=== PATIENT | female | born 1955 | race Caucasian/White ===

== ENCOUNTER 2022-08-18 00:31 | Inpatient (IN) | payer MEDICARE, SELFPAY ==
[2022-08-18] VITALS (9 sets, daily range): BP systolic 147–176; BP diastolic 59–87; PULSE 72–105; RESP 16–20; TEMP 36.2–37; O2SAT 92–95; BMI 27.4; BMI 33.0
--- NOTE | 2022-08-18 | ECG_ITS ---
Test Reason : CHEST PAIN Blood Pressure : / mmHG Vent. Rate : 091 BPM Atrial Rate : 091 BPM P-R Int : 150 ms QRS Dur : 122 ms QT Int : 436 ms P-R-T Axes : 076 115 -29 degrees QTc Int : 536 ms Sinus rhythm with occasional Premature ventricular complexes Right axis deviation Incomplete right bundle branch block Possible Right ventricular hypertrophy ST & T wave abnormality, consider inferior ischemia ST depression, consider subendocardial injury Anterolateral leads Abnormal ECG When compared with ECG of 06-NOV-2013 23:57, Significant changes have occurred Referred By: Meggan Sol Electronically Signed By:KADI LEVIN MD
--- NOTE | 2022-08-18 | ECG_ITS ---
Test Reason : REPEAT Blood Pressure : / mmHG Vent. Rate : 076 BPM Atrial Rate : 076 BPM P-R Int : 160 ms QRS Dur : 126 ms QT Int : 446 ms P-R-T Axes : 073 108 265 degrees QTc Int : 501 ms Normal sinus rhythm Possible Left atrial enlargement Rightward axis Non-specific intra-ventricular conduction block T wave abnormality, consider inferolateral ischemia Abnormal ECG When compared with ECG of 18-AUG-2022 04:11, No significant changes seen Referred By: Mickie Moura Electronically Signed By:KADI LEVIN MD
--- NOTE | ~2022-08-18 | XR_ITS ---
EXAMINATION: XR CHEST CLINICAL INFORMATION: Chest pain COMPARISON: 01/13/2016 TECHNIQUE: Frontal view of the chest was obtained. FINDINGS: Diffuse prominence of interstitium. Bronchial wall thickening redemonstrated. Bandlike opacity in the right midlung adjacent to the minor fissure represents subsegmental atelectasis. No pneumothorax. Normal heart size and pulmonary vascularity. Aorta is atherosclerotic. XR/XR chest 1V IMPRESSION: Diffuse bronchial wall thickening suggestive of bronchitis. No focal consolidation.
--- NOTE | 2022-08-18 02:23 | ED.CHESTPAIN ---
HPI - Chest Pain General Chief Complaint: Chest Pain Stated Complaint: pain in chest and left arm Time Seen by Provider: 08/18/22 02:11 Source: patient Limitations: language barrier History of Present Illness HPI narrative: This is a 67-year-old female with a history of an unspecified cardiac arrhythmia, also history of hypertension, unclear if she is on medication for blood pressure, hypercholesterolemia, diabetes, not a smoker, who complains of chest pain this been worsening over last few days. The pain has been coming and going but was more intense this evening. The patient also notes that she has a tingling sensation in her left forearm and hand. She denies shortness of breath, nausea, recurrent sweats but notes she did have some sweats yesterday. Patient did have a stress test done at [facility] several years ago but could not complete the exercise portion. She did call her primary care physician and has been referred to a edi specialist. Related Data Allergies Allergy/AdvReac Type Severity Reaction Status Date / Time No Known Allergies Allergy Unverified 07/14/20 17:47 [No Known Allergies*] Review of Systems Review of Systems: Yes all other systems are reviewed and are negative Constitutional: Constitutional: Reports as per HPI and Denies fever(s) Eyes: Eyes: Reports as per HPI and Reports no additional eye complaints ENT: Reports system reviewed and no additional complaints, except as documented, Reports as per HPI, Denies nasal congestion, Denies nasal discharge and Denies sore throat Cardiovascular: Cardiovascular: Reports as per HPI, Reports chest pain and Denies dyspnea Respiratory: Respiratory: Reports as per HPI, Denies cough and Denies dyspnea Gastrointestinal: Gastrointestinal: Reports as per HPI, Denies abdominal pain, Denies diarrhea and Denies vomiting Neurologic: Reports as per HPI and Denies focal weakness Psychiatric: Psychiatric: Reports no additional psychiatric complaints and Reports as per HPI Endocrine: Endocrine: Reports no additional endocrine complaints and Reports as per HPI Hematologic/Lymphatic: Hematologic/Lymphatic: Reports no additional hematologic/lymphatic complaints, Reports as per HPI and Reports other (No peripheral edema) [facility] Social History Social History Patient Tobacco Use Status: Never used Tobacco Use of substances other than those prescribed or required for medical reasons: No Advance Directives: No Advance Directives Information Provided: No Physical Exam Vital Signs: Vital Signs: Last Vital Signs Temp 98.3 F 08/18/22 02:11 Pulse 95 08/18/22 02:11 Resp 20 08/18/22 02:11 BP 176/87 H 08/18/22 02:11 Pulse Ox 94 08/18/22 02:11 O2 Del Method 08/18/22 02:11 BMI result Body Mass Index 27.4 PERRLA Conj [place] Mucous membranes moist Throat clear Neck supple Lungs CTA Heart RRR no murmurs rubs or gallops Abd soft, non tender, non distended, moderately obese Extremities no pitting edema Neuro alert and oriented x 3, non focal MDM - Chest Pain MDM Narrative Medical decision making narrative: Patient with significant risk factors for coronary artery disease, has had stuttering chest pain, gradually worsening. EKG does show ST depression consistent with possible ischemia. Patient is being started on aspirin, nitroglycerin sublingual. Patient is somewhat hypertensive. Patient is being signed out to Dr. Goldman at 02:45, will make final disposition. Troponin and other labs, chest x-ray pending Lab Data Result diagrams: 08/18/22 02:35 08/18/22 02:35 Labs: Lab Results 08/18/22 Range/Units 02:35 WBC 9.5 (4.8-10.8) X10*3/uL RBC 4.11 L (4.20-5.50) X10*6/uL Hgb 11.8 L (12.0-16.0) g/dl Hct 35.4 L (37.0-47.0) % MCV 86.1 (80.0-98.0) fL MCH 28.7 (27.0-33.0) pg MCHC 33.3 (31.0-35.0) g/dl RDW 13.0 (11.0-16.0) % Plt Count 286 (160-400) X10*3/uL MPV 9.9 (9.4-12.3) fL Immature Gran % (Auto) 0.2 (0.0-0.4) % Neut % (Auto) 65.8 (45-73) % Lymph % (Auto) 26.4 (20-40) % [place] % (Auto) 5.8 (2-11) % Eos % (Auto) 1.4 (0-4) % Baso % (Auto) 0.4 (0-2) % Lymph # (Auto) 2.5 (1.2-4.9) X10*3/uL [place] # (Auto) 0.6 (0.1-1.2) X10*3/uL Eos # (Auto) 0.1 (0.0-0.4) X10*3/uL Baso # (Auto) 0.0 (0.0-0.2) X10*3/uL Abs Immat Gran (auto) 0.02 (0.00-0.03) X10*3/uL Absolute Neuts (auto) 6.3 (2.0-8.3) x10*3/uL Absolute Nucleated RBC 0.000 (0.0-0.012) X10*3/uL Nucleated RBC % (auto) 0.0 (0.0-0.2) /100WBC ECG Data ECG #1: ECG interpretation date: 08/18/22 ECG interpretation time: 01:58 Prior ECG tracings: not available for review Interpretation: Sinus rhythm with occasional PVCs. Right axis deviation. Q-waves in leads V1 and V2. ST depression noted in leads V4 through V6 as well as in leads 2 3 AVF. Discharge Plan Discharge Clinical Impression: Chest pain
[2022-08-18 02:40] LABS: MANUAL DIFF FLAG NO
[2022-08-18] MEDS: Aspirin 81 MG TAB.CHEW 324 MG PO (02:40)
[2022-08-18 02:42] LABS: Basophils Percent Auto 0.4 % (0-2); Eosinophils Absolute Auto 0.1 X10*3/uL (0.0-0.4); Eosinophils Percent Auto 1.4 % (0-4); Hematocrit 35.4 % (37.0-47.0); Hemoglobin 11.8 g/dl (12.0-16.0); Imm Gran Abs Auto 0.02 X10*3/uL (0.00-0.03); Imm Gran Pct Auto 0.2 % (0.0-0.4); Lymphocytes Absolute Auto 2.5 X10*3/uL (1.2-4.9); Lymphocytes Percent Auto 26.4 % (20-40); Mean Corpuscular HGB Conc 33.3 g/dl (31.0-35.0); Mean Corpuscular Hemoglobin 28.7 pg (27.0-33.0); Mean Corpuscular Volume 86.1 fL (80.0-98.0); Mean Platelet Volume 9.9 fL (9.4-12.3); Monocytes Absolute Auto 0.6 X10*3/uL (0.1-1.2); Monocytes Percent Auto 5.8 % (2-11); Neutrophils Absolute Auto 6.3 x10*3/uL (2.0-8.3); Neutrophils Percent Auto 65.8 % (45-73); Platelet Count 286 X10*3/uL (160-400); Red Blood Count 4.11 X10*6/uL (4.20-5.50); White Blood Count 9.5 X10*3/uL (4.8-10.8)
[2022-08-18 02:47] LABS: INTERNATIONAL NORM RATIO 0.9 (0.9-1.1); Prothrombin Time 10.3 SEC (10.0-13.1)
[2022-08-18 02:50] LABS: Partial Thromboplastin Time 35.4 SEC (26.0-36.4)
[2022-08-18 03:04] LABS: Alanine Aminotransferase 12 U/L (0-31); Albumin Level 4.2 g/dL (3.5-5.0); Alkaline Phosphatase 77 U/L (39-117); Anion Gap 18 (12-20); Aspartate Amino Transferase 14 U/L (5-31); Bilirubin Total 0.3 mg/dL (0.0-1.0); Blood Urea Nitrogen 22 mg/dL (9-16); Calcium 9.2 mg/dL (8.4-10.2); Carbon Dioxide 26 mmol/L (22-29); Chloride 101 mmol/L (96-108); Creatinine Clr Calc Pharmacy 76.8; Estimated Glomerular Filt Rate > 60; Glucose Random 171 mg/dL (60-115); Sodium 141 mmol/L (135-145); Total Protein 6.8 g/dL (6.5-8.0)
[2022-08-18 03:08] LABS: Troponin-I High Sensitivity 22.7 ng/L (<3.5-17.0)
[2022-08-18 04:02] LABS: COVID-19 Test Negative (Negative)
--- NOTE | 2022-08-18 04:08 | ECG_ITS ---
Test Reason : REPEAT Blood Pressure : / mmHG Vent. Rate : 087 BPM Atrial Rate : 087 BPM P-R Int : 158 ms QRS Dur : 128 ms QT Int : 434 ms P-R-T Axes : 058 106 -65 degrees QTc Int : 522 ms Normal sinus rhythm Incomplete right bundle branch block ST depression in Anterolateral leads Possible Right ventricular hypertrophy Cannot rule out Septal infarct (cited on or before 18-AUG-2022) T wave abnormality, consider inferior ischemia Abnormal ECG When compared with ECG of 18-AUG-2022 02:17, Serial changes of Septal infarct Present Referred By: Meggan Sol Electronically Signed By:KADI LEVIN MD
[2022-08-18 04:41] LABS: Hematocrit 34.1 % (37.0-47.0); Hemoglobin 11.3 g/dl (12.0-16.0); Mean Corpuscular HGB Conc 33.1 g/dl (31.0-35.0); Mean Corpuscular Hemoglobin 28.6 pg (27.0-33.0); Mean Corpuscular Volume 86.3 fL (80.0-98.0); Mean Platelet Volume 10.1 fL (9.4-12.3); Platelet Count 278 X10*3/uL (160-400); Red Blood Count 3.95 X10*6/uL (4.20-5.50); White Blood Count 8.7 X10*3/uL (4.8-10.8)
[2022-08-18 04:47] LABS: Prothrombin Time 10.9 SEC (10.0-13.1)
[2022-08-18 04:49] LABS: PTT Heparin Drip 35.6 SEC (53-77.9)
[2022-08-18] MEDS: Heparin Sodium,Porcine 5,000 UNIT/ML VIAL 4000 UNIT IVPUSH (05:20)
[2022-08-18] MEDS: Heparin Sodium,Porcine/1/2NS 25,000 UNIT/250 ML IV.SOLN 9.84 UNIT IVCONT (05:37)
--- NOTE | 2022-08-18 05:40 | PC.NURSE ---
pt started on heparin drip @0540 - indonesian bilingual sales representative used at bedside to explain medication to patient - all patient questions answered at this time. pt resting comfortably, on monitoring and evaluation advisor. next ptt to be drawn @1130
--- NOTE | 2022-08-18 10:43 | PC.NURSE ---
This RN, hospitalist and wind plant manager at bedside. Pt states pain is intermittent and currently having pain, described as choking in nature . Aware of plan/admission. Heparin at 12units/kg/hr as ordered. Placed on 2lpm via nc, RA sat 91-92%, NSR on tele rate 105. Pt reports needing 02 at home but unable to maintain d/t finance. Denies SOB or dizziness. Skin pwd.
--- OUTSIDE RECORDS SUMMARY | 2022-08-18 11:09 | XMS_ITS | Continuity of Care Document ---
:1955 Author Organization [facility] Address [address] [place] [phone]- Care Team Providers Name Role Phone Not on Staff, PCP Primary Care Physician Unavailable Encounter [facility] Date(s): 04/05/20 - 05/05/20 [facility] [address] [place] [id number]- [facility] Attending Physician: Admtr, Ar8 Admitting Physician: Admtr, Ar8 Referring Physician: Admtr, Ar8 Allergies, Adverse Reactions, Alerts Substance Reaction Severity Status NKA Active Immunizations Given and Recorded Vaccine Date Status Refusal Reason pneumococcal 23-valent vaccine 12/12/19 Given Not Given Vaccine Date Status Refusal Reason influenza virus vaccine, inactivated 12/12/19 Not Given Patient Refuses Medications albuterol-ipratropium 3 mg-0.5 mg/3 ml inhalation solution 3 mL, Neb, Every 6 hours, PRN Wheezing/Shortness of Breath, # 180 mL, 0 Refills, Maintenance, 12/14/19 14:17:00 EST, Inhalation Solution, [facility], 3 mL Neb Every 6 hours,PRN:Wheezing/Shortness of Breath, 163, cm, 12/14/19 1... Start Date: 12/14/19 Status: OrderedAldactone 25 mg oral tablet 25 mg, 1, tablet, By Mouth, Daily, # 30 tablet, Refills 0, Tot. Refills 0, Maintenance, 01/01/20 8:31:00 EST, Route to Pharmacy Electronically, [facility], 163, cm, 01/01/20 8:01:00 EST, Height, 77.8, kg, 12/11/19 18:02:00 EST... Start Date: 01/01/20 Status: OrderedAmaryl 2 mg oral tablet 1 tablet = 2 mg, By Mouth, 2 times a day, 0 Refills, Maintenance, 12/08/16 17:52:23 EST Start Date: 12/08/16 Status: OrderedAspirin Low Dose 81 mg oral delayed release tablet 1 tablet = 81 mg, By Mouth, Daily, # 30 tablet, 0 Refills, Maintenance, 12/08/16 17:50:29 EST, EC Tablet Start Date: 12/08/16 Status: Orderedatorvastatin 80 mg oral tablet 1 tablet = 80 mg, By Mouth, Daily, # 30 tablet, 0 Refills, Maintenance, 09/29/19 9:27:05 EST, Tablet Start Date: 09/29/19 Status: Orderedcarvedilol 25 mg oral tablet 25 mg, 1, tablet, By Mouth, 2 times a day, # 180 tablet, Refills 1, Tot. Refills 1, Maintenance, 12/02/19 9:08:00 EST, Route to Pharmacy Electronically, [facility], this is an increased dose, 163, cm, 12/02/19 9:03:00 EST, Hei... Start Date: 12/02/19 Stop Date: 05/30/20 Status: OrderedEntresto 97 mg-103 mg oral tablet 1 tablet, By Mouth, 2 times a day, for 90 days, # 180 tablet, 1 Refills, Hard Stop 09/05/20 11:21:00EST, 03/09/20 11:21:00 EDT, Tablet, [facility], 163, cm, 01/01/20 8:01:00 EST, Height, 77.8, kg, 12/11/19 18:02:00 EST, Dry Weight Start Date: 03/09/20 Stop Date: 09/05/20 Status: OrderedEntresto 97 mg-103 mg oral tablet 1 tablet, By Mouth, 2 times a day, # 180 tablet, 3 Refills, Maintenance, 09/05/20 11:21:00 EST, Tablet, [facility], 1 tablet By Mouth 2 times a day, 163, cm, 01/01/20 8:01:00 EST, Height, 77.8, kg, 12/11/19 18:02:00 EST, Dry Weight Start Date: 09/05/20 Status: OrderedFlovent HFA 220 mcg/inh inhalation aerosol 1 puffs, Inhalation, 2 times a day, # 12 Gm, 0 Refills, Maintenance, Aerosol Start Date: 11/07/13 Status: Orderedfurosemide 20 mg oral tablet 20 mg, 1, tablet, By Mouth, Daily, # 30 tablet, Refills 0, Maintenance, 11/13/19 8:55:00 EST Start Date: 11/13/19 Status: Orderedmetformin 1000 mg oral tablet 1 tablet = 1,000 mg, By Mouth, 2 times a day, 0 Refills, Maintenance, 11/12/14 11:04:11 EST Start Date: 11/12/14 Status: OrderedProventil HFA 90 mcg/inh inhalation aerosol with adapter 1 puffs, Inhalation, 4 times a day, PRN for wheezing, # 1 each, 3 Refills, Maintenance, Inhaler Start Date: 11/14/13 Status: OrderedSerevent Diskus 50 mcg inhalation powder 1 each = 50 mcg, Inhalation, Every 12 hours, # 60 each, 0 Refills, Maintenance, 09/29/19 9:26:59 EST, Powder Start Date: 09/29/19 Status: OrderedSpiriva HandiHaler 18 mcg inhalation capsule 1 capsule = 18 mcg, Inhalation, Daily, ukrainian labels, # 90 capsule, 1 Refills, Maintenance, 12/14/2013:13:00 EST, [facility], 163, cm, 12/14/19 13:58:00 EST, Height, 77.8, kg,12/11/19 18:02:00 EST, Dry Weight Start Date: 12/14/19 Status: OrderedVitamin D3 2000 intl units oral capsule TAKE ONE CAPSULE DAILY Start Date: 09/29/19 Status: Ordered Problem List Condition Effective Dates Status Health Status Informant Non-ischemic cardiomyopathy(Confirmed) Active Type II diabetes mellitus(Confirmed) Active Social History Social History 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
--- OUTSIDE RECORDS SUMMARY | 2022-08-18 11:09 | XMS_ITS | Continuity of Care Document ---
:1955 Author Organization [facility] Address [address] [place] [phone]- Care Team Providers Name Role Phone Dinora Villagomez DO Primary Care Physician Encounter [facility] Date(s): 03/21/22 - 04/20/22 [facility] [address] [place] [id number]- Allergies, Adverse Reactions, Alerts No Known Allergies Immunizations Given and Recorded Vaccine Date Status Refusal Reason pneumococcal 23-valent vaccine 12/12/19 Given Not Given Vaccine Date Status Refusal Reason influenza virus vaccine, inactivated 12/12/19 Not Given Patient Refuses Medications albuterol-ipratropium 3 mg-0.5 mg/3 ml inhalation solution 3 mL, Neb, Every 6 hours, PRN Wheezing/Shortness of Breath, # 180 mL, 0 Refills, Maintenance, 12/14/19 14:17:00 EST, Inhalation Solution, [facility], 3 mL Neb Every 6 hours,PRN:Wheezing/Shortness of Breath, 163, cm, 12/14/19 1... Start Date: 12/14/19 Status: OrderedAldactone 25 mg oral tablet See Instructions, 0.5 tablet By Mouth Daily, # 45 tablet, Refills 1, Tot. Refills 1, Maintenance, 11/22/20 9:29:00 EST, Instructions Replace Required Details, Route to Pharmacy Electronically, [facility], 163, cm, 08/19/20 14:30:00... Start Date: 11/22/20 Status: OrderedAmaryl 2 mg oral tablet 1 [...] times a day, # 180 tablet, Refills 2, Tot. Refills 2, Maintenance, 03/21/22 15:03:00 EDT, Route to Pharmacy Electronically, [facility], 163, cm, 09/26/21 10:57:00 EST, Height, 81.3, kg, 06/07/21 23:46... Start Date: 03/21/22 Stop Date: 12/16/22 Status: Ordereddiclofenac 1% topical gel 1 application, Topically, 4 times a day, # 100 Gm, 0 Refills, Maintenance, 06/09/21 15:16:00 EDT, Gel, [facility], Partial fill upon patient request if the prescription is for a schedule II opioid drug., 163, cm, 08/19/20 14:30:00 E... Start Date: 06/09/21 Status: OrderedEntresto 97 mg-103 mg oral tablet 1 tablet, By Mouth, 2 times a day, # 180 tablet, 3 Refills, Maintenance, 03/21/22 15:02:00 EDT, Tablet, [facility], 1 tablet By Mouth 2 times a day,x90 days, 163, cm, 09/26/21 10:57:00 EST, Height, 81.3, kg, 06/07/21 23:46:00 EDT,... Start Date: 03/21/22 Stop Date: 03/16/23 Status: Orderedfamotidine 20 mg oral tablet Refills 0, Maintenance, 09/26/21 10:58:00 EST, Partial fill upon patient request if the prescriptionis for a schedule II opioid drug. Start Date: 09/26/21 Status: OrderedFlovent HFA 220 mcg/inh inhalation aerosol 1 puffs, Inhalation, 2 times a day, # 12 Gm, 0 Refills, Maintenance, Aerosol Start Date: 11/07/13 Status: Orderedfurosemide 20 mg oral tablet 20 mg, 1, tablet, By Mouth, Daily, # 90 tablet, Refills 2, Tot. Refills 2, Maintenance, 03/21/22 15:04:00 EDT, Route to Pharmacy Electronically, [facility], 163, cm, 09/26/21 10:57:00 EST, Height, 81.3, kg, 06/07/21 23:46:00 EDT,... Start Date: 03/21/22 Stop Date: 12/16/22 Status: Orderedmetformin 1000 mg oral tablet 1 tablet = 1,000 mg, By Mouth, 2 times a day, 0 Refills, Maintenance, 11/12/14 11:04:11 EST Start Date: 11/12/14 Status: OrderedOxygen Daily at bedtime, 0.5 liters, 0 Refills, Maintenance, 08/19/20 14:33:00 EDT Start Date: 08/19/20 Status: OrderedProventil HFA 90 mcg/inh inhalation aerosol [...] 1 capsule = 18 mcg, Inhalation, Daily, thai labels, # 90 capsule, 1 Refills, Maintenance, 12/14/2013:13:00 EST, [facility], 163, cm, 12/14/19 13:58:00 EST, Height, 77.8, kg,12/11/19 18:02:00 EST, Dry Weight Start Date: 12/14/19 Status: OrderedTrulicity Pen 1.5 mg/0.5 mL subcutaneous solution Subcutaneous Infusion, 0 Refills, Maintenance, 08/19/20 14:33:00 EDT Start Date: 08/19/20 Status: OrderedTylenol 8 Hour 650 mg oral tablet, extended release 2 tablet = 1,300 mg, By Mouth, Every 8 hours, PRN as needed for pain, # 50 tablet, 0 Refills, Maintenance, 06/09/21 15:16:00 EDT, ER Tablet, [facility], Partial fill upon patient request if the prescription is for a schedule II opio... 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
--- OUTSIDE RECORDS SUMMARY | 2022-08-18 11:09 | XMS_ITS | Continuity of Care Document ---
:1955 Author Organization [facility] Address [address] [place] [phone]- Care Team Providers Name Role Phone Dinora Villagomez DO Primary Care Physician Encounter [facility] Date(s): 12/16/20 - 01/15/21 [facility] [address] [place] [id number] Attending Physician: Henry Heath Admitting Physician: [id number] Referring Physician: Admtr, Ar8 Allergies, Adverse Reactions, [...] Inhalation Solution, [facility] - , 3 mL Neb Every 6 hours,PRN:Wheezing/Shortness of [...] 12/02/19 9:08:00 EST, Route to Pharmacy Electronically, [facility], this is an increased dose, 163, cm, 12/02/19 9:03:00 EST, Hei... Start Date: 12/02/19 Stop Date: 05/30/20 Status: OrderedEntresto 97 mg-103 mg oral tablet 1 tablet, By Mouth, 2 times a day, # 180 tablet, 1 Refills, Maintenance, 11/22/20 9:29:00 EST, Tablet, [facility], 1 tablet By Mouth 2 times a day, 163, cm, 08/19/20 14:30:00 EDT, Height, 77.8, kg, 12/11/19 18:02:00 EST, Dry Weight Start Date: 11/22/20 Status: OrderedFlovent HFA 220 mcg/inh inhalation aerosol [...] Refills, Maintenance, 11/12/14 11:04:11 EST Start Date: 1/16/15 Status: OrderedOxygen Daily at bedtime, 0.5 liters, [...] 1 capsule = 18 mcg, Inhalation, Daily, malay labels, # 90 capsule, 1 Refills, Maintenance, 12/14/2013:13:00 EST, [facility], 163, cm, 12/14/19 13:58:00 EST, Height, 77.8, kg,12/11/19 18:02:00 EST, Dry Weight Start Date: 12/14/19 Status: OrderedTrulicity Pen 1.5 mg/0.5 mL subcutaneous solution Subcutaneous Infusion, 0 Refills, Maintenance, 08/19/20 14:33:00 EDT Start Date: 08/19/20 Status: OrderedVitamin D3 2000 intl units oral [...]
--- OUTSIDE RECORDS SUMMARY | 2022-08-18 11:09 | XMS_ITS | Continuity of Care Document ---
:1955 Author Organization [facility] Address [address] [place] [phone]- Care Team Providers Name Role Phone Not on Staff, PCP Primary Care Physician Unavailable Encounter [facility] Date(s): 03/11/20 - 03/18/20 [facility] [address] [place] [phone]- [facility] Attending Physician: Jaqueline Fletcher NP Referring Physician: Enzo Nance DO Allergies, Adverse Reactions, Alerts Substance Reaction Severity [...] Refills, Maintenance, 12/14/19 14:17:00 EST, Inhalation Solution, [facility], 3 mL Neb Every 6 hours,PRN:Wheezing/Shortness of Breath, 163, cm, 12/14/19 1... Start Date: 12/14/19 Status: OrderedAldactone 25 mg oral tablet 25 mg, 1, tablet, By Mouth, Daily, # 30 tablet, Refills 0, Tot. Refills 0, Maintenance, 01/01/20 8:31:00 EST, Route to Pharmacy Electronically, [facility], 163, cm, 01/01/20 [...] 12/02/19 9:08:00 EST, Route to Pharmacy Electronically, [facility], this is an [...] 1 capsule = 18 mcg, Inhalation, Daily, iranian labels, # 90 capsule, 1 Refills, Maintenance, 12/14/2013:13:00 EST, [facility], 163, cm, 12/14/19 [...]
--- OUTSIDE RECORDS SUMMARY | 2022-08-18 11:09 | XMS_ITS | Continuity of Care Document ---
:1955 Author Organization [facility] Address [address] [place] [phone]- Care Team Providers Name Role Phone StaciecarlaDinora Herrera DO Primary Care Physician Encounter [facility] Date(s): 12/10/19 - 12/14/[address] [address]- [facility] Encounter Diagnosis Congestive heart failure (Final) - 12/10/19 Discharge Disposition: A-D/C Home Attending Physician: Yari Arriaza MD Admitting Physician: Phuong ALFORD, Froilan Mercedes Referring Physician: Not on Staff, Referring MD Allergies, Adverse Reactions, Alerts Substance Reaction Severity [...] Refills, Maintenance, 12/14/19 14:17:00 EST, Inhalation Solution, [facility], 3 mL Neb Every 6 hours,PRN:Wheezing/Shortness of Breath, 163, cm, 12/14/19 1... Start Date: 12/14/19 Status: OrderedAmaryl 2 mg oral tablet 1 [...] 12/02/19 9:08:00 EST, Route to Pharmacy Electronically, [facility], this is an increased dose, 163, cm, 12/02/19 9:03:00 EST, Hei... Start Date: 12/02/19 Stop Date: 05/30/20 Status: Ordereddoxycycline hyclate 100 mg oral tablet = 100 mg, By Mouth, Every 12 hours, Kiswahili labels, # 3 tablet, 0 Refills, Acute 12/15/19 22:00:00 EST, 12/14/19 21:00:00 EST, Tablet, [facility], 163, cm, 12/14/19 13:58:00 EST, Height, 77.8, kg, 12/11/19 18:02:00 EST, Dry Weight Start Date: 12/14/19 Stop Date: 12/15/19 Status: OrderedEntresto 97 mg-103 mg oral tablet 1 tablet, By Mouth, 2 times a day, # 180 tablet, 4 Refills, Maintenance, 11/13/19 9:38:00 EST, Tablet, [facility], 1 tablet By Mouth 2 times a day,x90 days, 163, cm, 11/13/19 8:54:00 EST, Height, 77.8, kg, 09/28/19 7:52:00 EST... Start Date: 11/13/19 Stop Date: 02/05/21 Status: OrderedFlovent HFA 220 mcg/inh inhalation aerosol [...] 11/12/14 11:04:11 EST Start Date: 11/12/14 Status: OrderedpredniSONE 10 mg oral tablet See Instructions, 30 mg on 12/15 for 3 days f/b 20mg for 3 days f/b 10 mg for 3 days and then stop. Labels in nepalese, # 18 tablet, 0 Refills, Acute 12/23/19 22:00:00 EST, 12/14/19 14:14:00 EST, Tablet, [facility], 163, cm, 11/28... Start Date: 12/14/19 Stop Date: 12/23/19 Status: OrderedProventil HFA 90 mcg/inh inhalation aerosol [...] 1 capsule = 18 mcg, Inhalation, Daily, nepalese labels, # 90 capsule, 1 Refills, Maintenance, 12/14/2013:13:00 EST, [facility], 163, cm, 12/14/19 13:58:00 EST, Height, 77.8, kg,12/11/19 18:02:00 EST, Dry Weight Start Date: 12/14/19 Status: OrderedVitamin D3 2000 intl units oral capsule TAKE ONE CAPSULE DAILY Start Date: 09/29/19 Status: Ordered Problem List Condition Effective Dates Status Health Status Informant Non-ischemic cardiomyopathy(Confirmed) Active Type II diabetes mellitus(Confirmed) Active Results Radiology Reports Exam Date Time Procedure Performing Provider Status 12/10/19 6:42 PM Chest Portable Arnold Doyle; Carlos (Verified) Notes:(Chest Portable) Reason For Exam: Shortness of BreathRESULT: Chest Portable Chest Portable Reason: Shortness of Breath; Clinical Question(s): CHF; Hx of Present Illness: SOB; Other Objective Findings: Pt nepalese speaking, came in viw ems on CPAP. states that she has been SOB for 2 days. lungssound diniminshed in bilateral bases. COMPARISON: 09/26/2019, 12/05/2014 FINDINGS: LINES AND TUBES: None. LUNGS AND PLEURA: There is prominence of the central pulmonary vessels and mid to lower lung interstitial markings. Nofocal airspace consolidation. No pneumothorax. No effusion. HEART, MEDIASTINUM AND ANN: Heart is normal in size. The ann are prominent, and similar to 2019 exam, but increased in size from 2014. BONES AND SOFT TISSUES: No acute abnormality. IMPRESSION: Findings are most suggestive of pulmonary venous congestion and interstitial edema, mild. Prominence of the ann similar to August 2019, but new compared with 2014. Findings could represent enlarged vessels versus hilar adenopathy. This could be further evaluated with routine chest CT. A Earp message has been communicated via the vogogo system on 12/10/2019 7:06 PM, Message ID [id number]. WSN: [id number] Dictated By: Any Boyle MD Dictated Date/Time: 12/10/19 7:06 pm Reviewed By: Any Boyle MD Signed By: Any Boyle MD Signed Date/Time: 12/10/19 7:06 pm Transcribed By: KALI Transcribed Date/Time: 12/10/19 7:03 pm Vital Signs Most recent to oldest 1 2 3 [Reference Range]: Height 163 cm 163 cm 163 cm (12/14/19 1:58 PM) (12/14/19 8:13 AM) (12/14/19 1:5 0 AM) Weight 79.9 kg 79.7 kg 78.7 kg (12/14/19 6:35 AM) (12/13/19 7:00 AM) (12/12/19 7:1 6 AM) Oxygen Saturation [94-100 %] 96 % 98 % 95 % (12/14/19 1:58 PM) (12/14/19 1:50 AM) (12/13/19 8:2 5 PM) Pulse Rate [55-90 bpm] 77 bpm 73 bpm 68 bpm (12/14/19 1:58 PM) (12/14/19 8:13 AM) (12/14/19 1:5 0 AM) Body Mass Index [18.5-24.99] 29.96 *H* (12/11/19 5:46 PM) Blood Pressure [90-138/55-84 mm 115/63 mm Hg 115/78 mm Hg 100/63 mm Hg Hg] (12/14/19 1:58 PM) (12/14/19 8:13 AM) (12/14/19 1:5 0 AM) Respiratory Rate [16-30 br/min] 16 br/min 16 br/min 16 br/min (12/14/19 1:58 PM) (12/14/19 8:13 AM) (12/14/19 1:5 0 AM) Temperature [96.8-100.4 DegF] 98.4 DegF 98.0 DegF 96 .9 DegF (12/14/19 1:58 PM) (12/14/19 8:13 AM) (12/14/19 1:5 0 AM) Liters per Minute 1.5 L/min 3 L/min 3 L/min (12/14/19 1:58 PM) (12/14/19 1:50 AM) (12/13/19 8:2 5 PM) Mode of Delivery (Oxygen) Nasal cannula Nasal cannula Nasal cannula (12/14/19 1:58 PM) (12/14/19 1:50 AM) (12/13/19 8:2 5 PM) Blood pressure sites Arm, left Arm, right Arm, left (12/14/19 1:58 PM) (12/14/19 8:13 AM) (12/14/19 1:5 0 AM) Temperature Route Oral Oral Temporal (12/14/19 1:58 PM) (12/14/19 8:13 AM) (12/14/19 1:5 0 AM) Dry Weight 77.8 kg (12/11/19 5:46 PM) Weight Obtained Via Bed scale Bed scale Bed scale (12/14/19 6:35 AM) (12/13/19 7:00 AM) (12/12/19 7:1 6 AM) Sensory deficits None (12/11/19 5:46 PM) Mobility assistance Independent (12/11/19 5:46 PM) Social History Social History 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
--- OUTSIDE RECORDS SUMMARY | 2022-08-18 11:10 | XMS_ITS | Continuity of Care Document ---
:1955 Author Organization [facility] Address [address] [place] [address]- Care Team Providers Name Role Phone Not on Staff, PCP Primary Care Physician Unavailable Encounter [facility] Date(s): 04/06/20 - 05/11/20 [facility] [address] [place] [address]- [facility] Attending Physician: Enzo Nance DO Admitting Physician: Enzo Nance DO Allergies, Adverse Reactions, [...] Refills, Maintenance, 12/14/19 14:17:00 EST, Inhalation Solution, [facility], 3 mL Neb Every 6 hours,PRN:Wheezing/Shortness of Breath, 163, cm, 12/14/19 1... Start Date: 12/14/19 Status: OrderedAldactone 25 mg oral tablet 25 mg, 1, tablet, By Mouth, Daily, # 30 tablet, Refills 0, Tot. Refills 0, Maintenance, 01/01/20 8:31:00 EST, Route to Pharmacy Electronically, [facility], 163, cm, 01/01/20 [...] 12/02/19 9:08:00 EST, Route to Pharmacy Electronically, [facility], this is an [...] 1 capsule = 18 mcg, Inhalation, Daily, kosovan labels, # 90 capsule, 1 Refills, Maintenance, 12/14/2013:13:00 EST, [facility], 163, cm, 12/14/19 [...]
--- OUTSIDE RECORDS SUMMARY | 2022-08-18 11:10 | XMS_ITS | Continuity of Care Document ---
:1955 Author Organization [facility] Address [address] [place] [phone]- Care Team Providers Name Role Phone Enzo Nance DO Primary Care Physician Encounter [facility] Date(s): 01/01/20 - 01/11/20 [facility] [address] [place] [address]- [facility] Attending Physician: AdmHenry benítez Admitting Physician: Admtr, Ar8 Referring Physician: Admtr, [...] Refills, Maintenance, 12/14/19 14:17:00 EST, Inhalation Solution, [facility], 3 mL Neb Every 6 hours,PRN:Wheezing/Shortness of Breath, 163, cm, 12/14/19 1... Start Date: 12/14/19 Status: OrderedAldactone 25 mg oral tablet 25 mg, 1, tablet, By Mouth, Daily, # 30 tablet, Refills 0, Tot. Refills 0, Maintenance, 01/01/20 8:31:00 EST, Route to Pharmacy Electronically, [facility], 163, cm, [...] 12/02/19 9:08:00 EST, Route to Pharmacy Electronically, [facility], this is an increased dose, 163, cm, 12/02/19 9:03:00 EST, Hei... Start Date: 12/02/19 Stop Date: 05/30/20 Status: OrderedEntresto 97 mg-103 mg oral tablet 1 tablet, By Mouth, 2 times a day, # 180 tablet, 4 Refills, Maintenance, 11/13/19 9:38:00 EST, Tablet, [facility], 1 tablet By Mouth [...] 1 capsule = 18 mcg, Inhalation, Daily, persian labels, # 90 capsule, 1 Refills, Maintenance, 12/14/2013:13:00 EST, [facility], 163, cm, [...]
--- OUTSIDE RECORDS SUMMARY | 2022-08-18 11:10 | XMS_ITS | Continuity of Care Document ---
:1955 Author Organization [facility] Address [address] [place] [phone]- Care Team Providers Name Role Phone Dinora Villagomez DO Primary Care Physician Encounter [facility] Date(s): 12/02/19 - 12/12/19 [facility] [address] [place] [address]- [facility] Attending Physician: Henry Heath Admitting Physician: AdmtrHenry Referring Physician: AdmtrHenry Allergies, Adverse Reactions, Alerts Substance Reaction Severity Status NKA Active Immunizations Given and Recorded Vaccine Date Status Refusal Reason pneumococcal 23-valent vaccine 12/12/19 Given Not Given Vaccine Date Status Refusal Reason influenza virus vaccine, inactivated 12/12/19 Not Given Patient Refuses Medications Amaryl 2 mg oral tablet 1 tablet = [...] 12/02/19 9:08:00 EST, Route to Pharmacy Electronically, [facility] - [facility], this is an increased dose, 163, cm, 12/02/19 9:03:00 EST, Hei... Start Date: 12/02/19 Stop Date: 05/30/20 Status: OrderedEntresto 97 mg-103 mg oral tablet 1 tablet, By Mouth, 2 times a day, # 180 tablet, 4 Refills, Maintenance, 11/13/19 9:38:00 EST, Tablet, [facility], 1 tablet By [...] Date: 09/29/19 Status: OrderedSpiriva HandiHaler 18 mcg Inhalation Capsule 1 capsule = 18 mcg, Inhalation, Daily, # 30 each, 1 Refills, Maintenance, Inhalation Capsule Start Date: 11/14/13 Status: OrderedVitamin D3 2000 intl units oral [...]
--- OUTSIDE RECORDS SUMMARY | 2022-08-18 11:10 | XMS_ITS | Continuity of Care Document ---
:1955 Author Organization [facility] Address [address] [place] [address]- Care Team Providers Name Role Phone Dinora Villagomez DO Primary Care Physician [place] [facility] [place]s): 11/13/19 - 11/23/19 [facility] [address] [place] [address]- [facility] Attending Physician: Henry Heath Admitting Physician: AdmtrHenry Referring Physician: Admtr Ar8 Allergies, Adverse Reactions, Alerts Substance Reaction Severity Status NKA Active Medications Amaryl 2 mg oral tablet 1 [...] 09/29/19 Status: Orderedcarvedilol 25 mg oral tablet 12.5 mg, 0.5, tablet, By Mouth, 2 times a day, # 30 tablet, Refills 2, Tot. Refills 2, Maintenance, 09/30/19 15:11:29 EST, Route to Pharmacy Electronically, [id number], [facility], 163, cm, 09/30/19 11:23:13 EST... 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
--- OUTSIDE RECORDS SUMMARY | 2022-08-18 11:10 | XMS_ITS | Continuity of Care Document ---
:1955 Author Organization [facility] Address [address] [place] [address]- Care Team Providers Name Role Phone Dinora Villagomez DO Primary Care Physician [id number] Date(s): 06/07/21 - 06/07/[address] [address]- Discharge Disposition: A-D/C Walkout Attending Physician: Not on Staff, Attending MD Admitting Physician: Not on Staff, Admitting MD Referring Physician: Not on Staff, Referring MD [...] Refills, Maintenance, 12/14/19 14:17:00 EST, Inhalation Solution, [facility], 3 mL Neb Every [...] 12/02/19 9:08:00 EST, Route to Pharmacy Electronically, [facility], this is an increased [...] 1 capsule = 18 mcg, Inhalation, Daily, malawian labels, # 90 capsule, 1 Refills, Maintenance, 12/14/2013:13:00 EST, [facility], 163, cm, 12/14/19 13:58:00 [...] Exam Date Time Procedure Performing Provider Status 06/07/21 3:27 PM XR Hip w/Pelvis 2-3 View Right Marilou Pedraza ; Auth (Verified) Notes:(XR Hip w/Pelvis 2-3 View Right) Reason For Exam: PainRESULT: XR Hip w/Pelvis 2-3 View Right XR Hip w/Pelvis 2-3 View Right Hx of Present Illness: Right hip and leg pain x 4 days; Reason: Pain; Clinical Question(s): Other: COMPARISON: 12/23/2008. FINDINGS: The patient is status post right hip arthroplasty. Hardware appears intact without evidence of loosening. Hardware is anatomic alignment. No acute fracture. Degenerative changes noted in the lower lumbar spine. The SI joints are normal. Calcified phleboliths in the soft tissue pelvis. Mild stool retention. IMPRESSION: Status post right hip arthroplasty. No evidence of hardware failure. No acute abnormality. WSN: [id number] Ordering Physician: Thea Beckford Dictated By: Aashish Castorena MD Dictated Date/Time: 06/07/21 3:41 pm Reviewed By: Aashish Castorena MD Signed By: Aashish Castorena MD Signed Date/Time: 06/07/21 3:41 pm Transcribed By: KALI Transcribed Date/Time: 06/07/21 3:38 pm Vital Signs Most recent to oldest 1 2 3 [Reference Range]: Weight 81.3 kg 81.3 kg 81.3 kg (06/07/21 11:46 PM) (06/07/21 11:46 PM) (06/07/21 2 :48 PM) Oxygen Saturation [94-100 %] 98 % 98 % 95 % (06/07/21 11:46 PM) (06/07/21 8:31 PM) (06/07/21 11 :30 AM) Pulse Rate [55-90 bpm] 78 bpm 76 bpm 79 bpm (06/07/21 11:46 PM) (06/07/21 8:31 PM) (06/07/21 11 :30 AM) Blood Pressure [90-138/55-84 150/75 mm Hg 159/83 mm Hg 133 /78 mm Hg mm Hg] *H* *H* (06/07/21 11:30 A M) (06/07/21 11:46 PM) (06/07/21 8:31 PM) Respiratory Rate [16-30 16 br/min 20 br/min 16 br/mi n br/min] (06/07/21 11:46 PM) (06/07/21 8:31 PM) (06/07/21 11 :30 AM) Temperature [96.8-100.4 97.7 DegF 98.2 DegF 98.7 Deg F DegF] (06/07/21 11:46 PM) (06/07/21 8:31 PM) (06/07/21 11 :30 AM) Mode of Delivery (Oxygen) Room air Room air Room a ir (06/07/21 11:46 PM) (06/07/21 8:31 PM) (06/07/21 11 :30 AM) Blood pressure sites Arm, right Arm, left Arm, right (06/07/21 11:46 PM) (06/07/21 8:31 PM) (06/07/21 11 :30 AM) Temperature Route Oral Oral Oral (06/07/21 11:46 PM) (06/07/21 11:46 PM) (06/07/21 8 :31 PM) Dry Weight 81.3 kg 81.3 kg 81.3 kg (06/07/21 11:46 PM) (06/07/21 11:46 PM) (06/07/21 2 :48 PM) Weight Obtained Via Standing scale (06/07/21 11:30 AM) Dry Weight Obtained Via Standing scale (06/07/21 11:30 AM) Social History Social History 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
--- OUTSIDE RECORDS SUMMARY | 2022-08-18 11:10 | XMS_ITS | Continuity of Care Document ---
:1955 Author Organization [facility] Address [address] [place] [phone]- Care Team Providers Name Role Phone Dinora Villagomez DO Primary Care Physician Encounter [facility] Date(s): 09/26/21 - 10/26/21 [facility] [address] [place] [phone]- Attending Physician: Henry Heath Admitting Physician: Henry Heath Referring Physician: Admtr, Patricio8 Allergies, Adverse Reactions, Alerts Substance Reaction Severity [...] Refills, Maintenance, 12/14/19 14:17:00 EST, Inhalation Solution, [facility], 3 mL Neb [...] 12/02/19 9:08:00 EST, Route to Pharmacy Electronically, [facility], this is an increased dose, 163, cm, 12/02/19 9:03:00 EST, Hei... Start Date: 12/02/19 Stop Date: 05/30/20 Status: Ordereddiclofenac 1% topical gel 1 application, [...] tablet, By Mouth, 2 times a day, waiting for mailorder, # 180 tablet, 4 Refills, Maintenance, 09/26/21 11:49:00 EST, Tablet, [facility], 1 tablet By Mouth 2 times a day,x90 days,Instr:waiting for mailorder, 163, cm, 09/26/21 10:57... Start Date: 09/26/21 Stop Date: 12/20/22 Status: Orderedfamotidine 20 mg oral tablet Refills [...] 1 capsule = 18 mcg, Inhalation, Daily, guamanian labels, # 90 capsule, 1 Refills, Maintenance, 12/14/2013:13:00 EST, [facility], 163, cm, 12/14/19 [...]
--- OUTSIDE RECORDS SUMMARY | 2022-08-18 11:10 | XMS_ITS | Continuity of Care Document ---
:1955 Author Organization [facility] Address [address] [place] [address]- Care Team Providers Name Role Phone Not on Staff, PCP Primary Care Physician Unavailable Encounter [facility] Date(s): 03/24/20 - 05/05/20 [facility] [address] [place] [phone]- [facility] Attending Physician: Enzo Nance DO Referring Physician: Not on Staff, Referring MD [...] Refills, Maintenance, 12/14/19 14:17:00 EST, Inhalation Solution, [facility], 3 mL Neb Every 6 hours,PRN:Wheezing/Shortness of Breath, 163, cm, 12/14/19 1... Start Date: 12/14/19 Status: OrderedAldactone 25 mg oral tablet 25 mg, 1, tablet, By Mouth, Daily, # 30 tablet, Refills 0, Tot. Refills 0, Maintenance, 01/01/20 8:31:00 EST, Route to Pharmacy Electronically, [facility], 163, cm, 01/01/20 8:01:00 [...] 12/02/19 9:08:00 EST, Route to Pharmacy Electronically, [facility], this is [...] 1 capsule = 18 mcg, Inhalation, Daily, amharic labels, # 90 capsule, 1 Refills, Maintenance, 12/14/2013:13:00 EST, [facility], 163, cm, [...]
--- OUTSIDE RECORDS SUMMARY | 2022-08-18 11:10 | XMS_ITS | Continuity of Care Document ---
:1955 Author Organization [facility] Address [address] [place] [address]- Care Team Providers Name Role Phone Dinora Villagomez DO Primary Care Physician Encounter [facility] Date(s): 09/20/21 - 10/20/21 [facility] [address] [place] [address]- [place] Allergies, Adverse Reactions, Alerts Substance Reaction Severity [...] 1 capsule = 18 mcg, Inhalation, Daily, montenegrin labels, # 90 capsule, 1 Refills, Maintenance, [...]
--- OUTSIDE RECORDS SUMMARY | 2022-08-18 11:10 | XMS_ITS | Continuity of Care Document ---
:1955 Author Organization [facility] Address [address] [place] [address]- Care Team Providers Name Role Phone StaciecarlaDinora Herrera DO Primary Care Physician Encounter [facility] Date(s): 11/22/20 - 12/22/20 [facility] [address] [place] [address] Allergies, Adverse Reactions, Alerts Substance Reaction Severity [...] Refills, Maintenance, 12/14/19 14:17:00 EST, Inhalation Solution, [facility] - , 3 mL Neb [...] 12/02/19 9:08:00 EST, Route to Pharmacy Electronically, [facility], this is an [...] 1 capsule = 18 mcg, Inhalation, Daily, bruneian labels, # 90 capsule, 1 Refills, Maintenance, 12/14/2013:13:00 EST, [facility], 163, cm, 12/14/19 [...]
--- OUTSIDE RECORDS SUMMARY | 2022-08-18 11:10 | XMS_ITS | Continuity of Care Document ---
:1955 Author Organization [facility] Address [address] [place] [address]- Care Team Providers Name Role Phone Dinora Villagomez DO Primary Care Physician Encounter [facility] [place] Date(s): 10/02/19 - 12/10/19 [facility] [address] [place] [phone]- [facility] Attending Physician: Enzo Nance DO Admitting Physician: Enzo Nance DO Referring Physician: Dinora Villagomez DO Allergies, Adverse Reactions, Alerts Substance Reaction [...] 12/02/19 9:08:00 EST, Route to Pharmacy Electronically, [facility], this is an increased dose, 163, cm, 12/02/19 9:03:00 EST, Hei... Start Date: 12/02/19 Stop Date: 05/30/20 Status: OrderedEntresto 97 mg-103 mg oral tablet 1 tablet, By Mouth, 2 times a day, # 180 tablet, 4 Refills, Maintenance, 11/13/19 9:38:00 EST, Tablet, [facility], 1 tablet By Mouth [...]
--- OUTSIDE RECORDS SUMMARY | 2022-08-18 11:10 | XMS_ITS | Continuity of Care Document ---
:1955 Author Organization [facility] Address [address] [place] [address]- Care Team Providers Name Role Phone Dinora Villagomez DO Primary Care [id number] Date[facility] 06/08/21 - 06/09/[address] [address]- Encounter Diagnosis Muscle strain of thigh (Final) - 06/09/21 Discharge Disposition: A-D/C Home Attending Physician: Mickie Villagran MD Admitting Physician: Mickie Villagran MD Referring Physician: Not on Staff, Referring [...] Refills, Maintenance, 12/14/19 14:17:00 EST, Inhalation Solution, [facility], 3 mL [...] 12/02/19 9:08:00 EST, Route to Pharmacy Electronically, [facility] - [facility], this is [...] 90 capsule, 1 Refills, Maintenance, 12/14/2013:13:00 EST, [facility], 163, cm, [...] cardiomyopathy(Confirmed) Active Type II diabetes mellitus(Confirmed) Active Vital Signs Most recent to oldest 1 2 3 [Reference Range]: Oxygen Saturation [94-100 %] 98 % 98 % 95 % (06/09/21 2:41 PM) (06/09/21 12:55 PM) (06/09/21 8: 05 AM) Pulse Rate [55-90 bpm] 80 bpm 82 bpm 84 bpm (06/09/21 2:41 PM) (06/09/21 12:55 PM) (06/09/21 8: 05 AM) Blood Pressure [90-138/55-84 140/69 mm Hg 142/70 mm Hg 141 /72 mm Hg mm Hg] *H* *H* *H* (06/09/21 2:41 PM) (06/09/21 12:55 PM) (06/09/21 8: 05 AM) Respiratory Rate [16-30 17 br/min 16 br/min 16 br/mi n br/min] (06/09/21 2:41 PM) (06/09/21 12:55 PM) (06/09/21 8: 05 AM) Temperature [96.8-100.4 DegF] 98.2 DegF 98.2 DegF 98 .1 DegF (06/09/21 2:41 PM) (06/09/21 12:55 PM) (06/09/21 8: 05 AM) Mode of Delivery (Oxygen) Room air Room air Room a ir (06/09/21 2:41 PM) (06/09/21 12:55 PM) (06/09/21 8: 05 AM) Blood pressure sites Arm, right Arm, right Arm, right (06/09/21 2:41 PM) (06/09/21 12:55 PM) (06/09/21 8: 05 AM) Temperature Route Oral Oral Oral (06/09/21 2:41 PM) (06/09/21 12:55 PM) (06/09/21 8: 05 AM) Social History Social History 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
--- NOTE | 2022-08-18 11:46 | PM.IMHP ---
History of Present Illness Date of Service: 08/18/22 <JANELLE Peraza - Last Filed: 08/18/22 16:36> Attending physician on admission: Daniel Fontenot <JANELLE Peraza - Last Filed: 08/18/22 16:36> Chief Complaint: chest pain <JANELLE Peraza - Last Filed: 08/18/22 16:36> 67-year-old female with history of insulin-dependent type 2 diabetes, hypertension, CHF unspecified type, COPD, former smoker, hypercholesterolemia, history unspecified arrhythmia presented to the ED early this morning for evaluation of retrosternal chest pain that has been ongoing intermittently for several days that had been worsening. She describes a burning sensation in the chest without any pressure with associated tingling into the left forearm and hand. There is no radiation of the pain. Occurs at rest and with exertion. She denies any other associated symptoms including diaphoresis, nausea, vomiting, shortness of breath, lightheadedness, palpitations. She states she did have a similar episode well walking for prolonged period several months ago described as tightness across the chest which resolved with rest. She did not seek medical attention for follow-up on this chest pain. On arrival, patient is hypertensive at 175/84, heart rate 92, no hypoxia. Chest x-ray shows diffuse bronchial wall thickening suggestive of bronchitis without any focal consolidation. Initial EKG shows sinus rhythm, rate 91, with ST/T-wave abnormality with depressions noted in the the 2-4 and leads II, III, AVF. Repeat EKG shows some improvement with depressions persist. Initial troponin 22.7, repeat troponin 28.0. Glucose 171. Renal function and electrolytes stable. Hematology study stable. Patient given aspirin and nitro in the ED and is resting comfortably currently. She has no complaints. ED discussed case with cardiology who is recommending admission and patient started on heparin drip. RN assisted with Sami interpretation. <JANELLE Peraza - Last Filed: 08/18/22 16:36> Review of Systems Review of Systems: General: No fevers, malaise, unintentional weight loss HEENT: No blurred vision or diplopia Cardiovascular: + chest pain. No palpitations, diaphoresis, or leg edema Respiratory: No shortness of breath, wheezing, cough GI: No abdominal pain, nausea, vomiting, diarrhea, constipation, melena, hematochezia : No dysuria, hematuria, increased urinary frequency Neuro: No headaches, weakness, paresthesias Skin: No rashes or lesions <JANELLE Peraza - Last Filed: 08/18/22 16:36> [facility] Medical History: Medical History (Updated 08/18/22 @ 11:55 by JANELLE Peraza) CHF (congestive heart failure) COPD (chronic obstructive pulmonary disease) HTN (hypertension) Hyperlipidemia Type 2 diabetes <JANELLE Peraza - Last Filed: 08/18/22 16:36> Family History: Family History (Updated 08/18/22 @ 11:56 by JANELLE Peraza) Mother Stroke Maternal Grandmother CAD (coronary artery disease) <JANELLE Peraza - Last Filed: 08/18/22 16:36> Social History: Social History (Updated 08/18/22 @ 11:56 by JANELLE Peraza) Patient Tobacco Use Status: Former Tobacco user Use of substances other than those prescribed or required for medical reasons: No Advance Directives: No Advance Directives Information Provided: No <JANELLE Peraza - Last Filed: 08/18/22 16:36> Meds Allergies/Adverse reactions: Allergies Allergy/AdvReac Type Severity Reaction Status Date / Time No Known Allergies Allergy Unverified 07/14/20 17:47 [No Known Allergies*] <JANELLE Peraza - Last Filed: 08/18/22 16:36> Active Medications: Current Medications Acetaminophen (Acetaminophen 325 Mg Tablet) 650 mg PO Q6H PRN PRN Reason: Pain, Mild (Pain Scale 1-3) Dextrose (Dextrose 50 % 25 Gm/50 Ml Syringe) 25 gm IVPUSH Q15M PRN; Protocol PRN Reason: per Hypoglycemia Standing Ord. Docusate Sodium (Docusate Sodium 100 Mg Capsule) 100 mg PO DAILY PRN PRN Reason: Constipation Glucose (Glucose Gel 15 Gm Gel..Gram.) 15 gm PO Q15M PRN; Protocol PRN Reason: per Hypoglycemia Standing Ord. Heparin Sodium (Porcine) (Heparin Sodium,Porcine 5,000 Unit/Ml Vial) 3,300 unit IVPUSH PROTOCOL BOLUS PRN; Protocol PRN Reason: 40 unit/kg - Heparin Protocol Heparin Sodium (Porcine) (Heparin Sodium,Porcine 5,000 Unit/Ml Vial) 6,600 unit IVPUSH PROTOCOL BOLUS PRN; Protocol PRN Reason: 80 unit/kg - Heparin Protocol Heparin Sodium/Sodium Chloride (Heparin Sodium,Porcine/1/2ns) 25,000 unit in 250 mls @ 0 mls/hr IVCONT .Q0M [facility]; Protocol Last Admin: 08/18/22 05:37 Dose: 12 units/kg/hr, 9.84 mls/hr Insulin Human Lispro (Insulin Lispro 100 Unit/Ml 3 Ml Vial) 0 unit SUBCUT QIDACHS [facility]; Protocol Nitroglycerin (Nitroglycerin 0.4 Mg Tab.Subl) 0.4 mg SUBLINGUAL Q5MX3 PRN PRN Reason: Chest Pain Ondansetron HCl (Ondansetron Hcl 4 Mg/2 Ml Vial) 4 mg IVPUSH Q8H PRN PRN Reason: Nausea and Vomiting Pharmacy Consult (Consult Rx Perform Med Rec) 1 each MISCELLANE ONCE PRN PRN Reason: Consult order Sodium Chloride (0.9 % Sodium Chloride Flush 3 Ml Syringe) 3 ml IVFLUSH [facility] <JANELLE Peraza - Last Filed: 08/18/22 16:36> Home medications: Home Medications Medication Instructions Recorded Confirmed Last Taken Type albuterol sulfate 90 mcg/actuation 2 puff inhalation Q4H PRN 08/18/22 08/18/22 Unknown History aerosol inhaler (ProAir HFA) Shortness Of Breath ascorbic acid (vitamin C) 1,000 mg 1,000 mg PO BID 08/18/22 08/18/22 08/17/22 History tablet (Vitamin C) aspirin 81 mg tablet,delayed 81 mg PO DAILY 08/18/22 08/18/22 08/17/22 History release atorvastatin 80 mg tablet 1 tab BEDTIME 08/18/22 08/18/22 08/17/22 History carvedilol 25 mg tablet 1 tab PO BID 08/18/22 08/18/22 08/17/22 History cholecalciferol (vitamin D3) 50 1 cap DAILY 08/18/22 08/18/22 08/17/22 History mcg (2,000 unit) capsule cyanocobalamin (vitamin B-12) 1,000 mcg PO DAILY 08/18/22 08/18/22 Unknown History 1,000 mcg tablet furosemide 20 mg tablet 1 tab PO DAILY 08/18/22 08/18/22 08/17/22 History insulin glargine 100 unit/mL (3 30 unit subcut BEDTIME 08/18/22 08/18/22 08/17/22 History mL) subcutaneous pen (Lantus Solostar U-100 Insulin) ipratropium 0.5 mg-albuterol 3 mg 3 ml inhalation Q6H PRN Shortness 08/18/22 08/18/22 Unknown History (2.5 mg base)/3 mL nebulization Of Breath soln magnesium oxide 400 mg PO BID 08/18/22 08/18/22 08/17/22 History metformin 1,000 mg tablet 1 tab PO BIDWM 08/18/22 08/18/22 08/17/22 History salmeterol 50 mcg/dose blister 1 inh inhalation BID 08/18/22 08/18/22 08/17/22 History powder for inhalation (Serevent Diskus) vitamin B complex 1 tab PO DAILY 08/18/22 08/18/22 08/17/22 History vitamin K2 100 mcg capsule 100 mcg PO DAILY 08/18/22 08/18/22 08/17/22 History <JANELLE Peraza - Last Filed: 08/18/22 16:36> Physical Exam Vital Signs and Narrative: Vital Signs: Last Vital Signs Temp 98.4 F 08/18/22 06:02 Pulse 105 H 08/18/22 10:43 Resp 20 08/18/22 10:43 BP 172/77 H 08/18/22 10:43 Pulse Ox 92 08/18/22 10:43 O2 Del Method 08/18/22 10:43 BMI result Body Mass Index 33.0 <JANELLE Peraza - Last Filed: 08/18/22 16:36> Constitutional - Awake and Alert, No apparent distress Eyes - PERRLA, EOMI Cardiovascular - S1S2, RRR, No edema Respiratory - Normal lung expansion, Normal respiratory effort, No respiratory distress, CTA bilaterally Gastrointestinal - NT / ND; +BS; No rebound or guarding Extremities - no calf tenderness bilaterally, no swelling Skin - Warm/Dry Neurological - Alert & oriented x3, CN II-XII in tact, no sensory or motor deficit Psychological - Appropriate affect <JANELLE Peraza - Last Filed: 08/18/22 16:36> Results Labs CBC and Chem 7: : 08/18/22 04:35 08/18/22 02:35 <JANELLE Peraza - Last Filed: 08/18/22 16:36> Labs: Laboratory Results - last 24 hr 08/18/22 08/18/22 08/18/22 02:35 02:35 02:35 MCV 86.1 MCH 28.7 MCHC 33.3 RDW 13.0 Plt Count 286 MPV 9.9 Immature Gran % (Auto) 0.2 Neut % (Auto) 65.8 Lymph % (Auto) 26.4 Amelia % (Auto) 5.8 Eos % (Auto) 1.4 Baso % (Auto) 0.4 Lymph # (Auto) 2.5 Amelia # (Auto) 0.6 Eos # (Auto) 0.1 Baso # (Auto) 0.0 Abs Immat Gran (auto) 0.02 Absolute Neuts (auto) 6.3 Absolute Nucleated RBC 0.000 Nucleated RBC % (auto) 0.0 PT INR APTT aPTT Heparin Protocol Anion Gap 18 Estim Creat Clear Calc 76.8 Estimated GFR > 60 Random Glucose 171 H Calcium 9.2 Total Bilirubin 0.3 AST 14 ALT 12 Alkaline Phosphatase 77 Troponin I High Sens 22.7 H Total Protein 6.8 Albumin 4.2 COVID-19 ([facility]) COVID-19 Clin Com 08/18/22 08/18/22 08/18/22 02:35 03:43 03:43 MCV MCH MCHC RDW Plt Count MPV Immature Gran % (Auto) Neut % (Auto) Lymph % (Auto) Amelia % (Auto) Eos % (Auto) Baso % (Auto) Lymph # (Auto) Amelia # (Auto) Eos # (Auto) Baso # (Auto) Abs Immat Gran (auto) Absolute Neuts (auto) Absolute Nucleated RBC Nucleated RBC % (auto) PT 10.3 INR 0.9 APTT 35.4 aPTT Heparin Protocol Anion Gap Estim Creat Clear Calc Estimated GFR Random Glucose Calcium Total Bilirubin AST ALT Alkaline Phosphatase Troponin I High Sens 28.0 H Total Protein Albumin COVID-19 ([facility]) Negative COVID-19 Clin Com See Note 08/18/22 08/18/22 04:35 04:35 MCV 86.3 MCH 28.6 MCHC 33.1 RDW 13.0 Plt Count 278 MPV 10.1 Immature Gran % (Auto) Neut % (Auto) Lymph % (Auto) Amelia % (Auto) Eos % (Auto) Baso % (Auto) Lymph # (Auto) Amelia # (Auto) Eos # (Auto) Baso # (Auto) Abs Immat Gran (auto) Absolute Neuts (auto) Absolute Nucleated RBC 0.000 Nucleated RBC % (auto) 0.0 PT 10.9 INR 1.0 APTT aPTT Heparin Protocol 35.6 L Anion Gap Estim Creat Clear Calc Estimated GFR Random Glucose Calcium Total Bilirubin AST ALT Alkaline Phosphatase Troponin I High Sens Total Protein Albumin COVID-19 ([facility]) COVID-19 Clin Com <JANELLE Peraza - Last Filed: 08/18/22 16:36> Imaging Radiologist's Impressions: Impressions Chest X-Ray 08/18/22 02:29 IMPRESSION: Diffuse bronchial wall thickening suggestive of bronchitis. No focal consolidation. <JANELLE Peraza - Last Filed: 08/18/22 16:36> Assessment and Plan (1) ACS (acute coronary syndrome): Status: Acute <JANELLE Peraza - Last Filed: 08/18/22 16:36> 67-year-old female with history of insulin-dependent type 2 diabetes, hypertension, CHF unspecified type, COPD, former smoker, hypercholesterolemia, history unspecified arrhythmia admitted for unstable angina. #Unstable angina- patient denies current chest pain -patient with somewhat atypical retrosternal burning chest pain worsening intermittently over the last 5 days -Given ASA and nitro in ED with full resolution of symptoms. -continue ASA daily and nitro p.r.n. -EKG with depressions be 2-4 and II, III, AVF. Improved on repeat EKG -troponins flat at 22.0 and 28 -cardiology consulted -continue heparin drip per Cardiology -echocardiogram ordered -admit to telemetry #CHF- unspecified type- euvolemic -Prescribed entresto but has not been taking due to cost -Continue furosemide -Echo pending #HTN-BP elevated -Resume home carvedilol and lasix -Monitor BP #HLD -LDL pending -COntinue statin # insulin-dependent type 2 diabetes -POC glucose -diabetic diet -dose adjusted Lantus -Humalog on sliding scale -hold metformin # COPD without acute exacerbation -continue home maintenance meds -albuterol p.r.n. # history unspecified arrhythmia -EKG showing sinus rhythm -admit to telemetry DVT prophylaxis-on heparin per protocol Full code Patient requires inpatient stay of at least 2 midnights due to unstable angina on heparin drip requiring further workup including echocardiogram and possible stress test with Aks per consultation Addendum to history and physical by mid-level provider, JANELLE Moura I interviewed and examined the patient. I discussed their presentation and management with the mid-level provider. I reviewed the history and physical and agree with the documentation, with the following additions and corrections: 67yo F with DM2, HTN, CHF, COPD, HLD Presenting with stutering burning chest pain with LUE tingling for the past few days, both rest and exertional. EKG with anterolateral ST dperessions. Hs-Tn-I 22.7->28 but this was after 1 hr, not 3 hr. Concern for NSTEMI/UA. Plan admit to IMC, heparinize, ASA/statin/carvedilol, TTE, statin, Cardiology consult. <JANELLE Peraza - Last Filed: 08/18/22 16:36> 67-year-old female with history of insulin-dependent type 2 diabetes, hypertension, CHF unspecified type, COPD, former smoker, hypercholesterolemia, history unspecified arrhythmia admitted for unstable angina. #Unstable angina- patient denies current chest pain -patient with somewhat atypical retrosternal burning chest pain worsening intermittently over the last 5 days -Given ASA and nitro in ED with full resolution of symptoms. -continue ASA daily and nitro p.r.n. -EKG with depressions be 2-4 and II, III, AVF. Improved on repeat EKG -troponins flat at 22.0 and 28 -cardiology consulted -continue heparin drip per Cardiology -echocardiogram ordered -admit to telemetry #CHF- unspecified type- euvolemic -Prescribed entresto but has not been taking due to cost -Resume entresto -Continue furosemide -Echo pending #HTN-BP elevated -Resume home carvedilol and entresto -Monitor BP #HLD -LDL pending -COntinue statin # insulin-dependent type 2 diabetes -POC glucose -diabetic diet -dose adjusted Lantus -Humalog on sliding scale -hold metformin and Trulicity # COPD without acute exacerbation -continue home maintenance meds -albuterol p.r.n. # history unspecified arrhythmia -EKG showing sinus rhythm -admit to telemetry DVT prophylaxis-on heparin per protocol Full code Patient requires inpatient stay of at least 2 midnights due to unstable angina on heparin drip requiring further workup including echocardiogram and possible stress test with Aks per consultation Addendum to history and physical by mid-level provider, JANELLE Moura I interviewed and examined the patient. I discussed their presentation and management with the mid-level provider. I reviewed the history and physical and agree with the documentation, with the following additions and corrections: 67yo F with DM2, HTN, CHF, COPD, HLD Presenting with stutering burning chest pain with LUE tingling for the past few days, both rest and exertional. EKG with anterolateral ST dperessions. Hs-Tn-I 22.7->28 but this was after 1 hr, not 3 hr. Concern for NSTEMI/UA. Plan admit to IMC, heparinize, ASA/statin/carvedilol, TTE, statin, Cardiology consult. <Daniel Fontenot MD - Last Filed: 08/18/22 13:58> Quality Stroke Does the patient have a stroke diagnosis?: No <Daniel Fontenot MD - Last Filed: 08/18/22 13:58> VTE Prior VTE?: No <Daniel Fontenot MD - Last Filed: 08/18/22 13:58> VTE Risk Level:: Medical - moderate - high <JANELLE Peraza - Last Filed: 08/18/22 16:36> VTE Device Contraindication: Treatment Not Indicated <JANELLE Peraza - Last Filed: 08/18/22 16:36> VTE Drug Contraindication: N/A - Med Ordered <JANELLE Peraza - Last Filed: 08/18/22 16:36>
[2022-08-18 11:55] LABS: PTT Heparin Drip 75.8 SEC (53-77.9)
[2022-08-18 13:25] LABS: Glucose, Whole Blood 111 mg/dL (60-115)
--- NOTE | 2022-08-18 13:28 | PC.NURSE ---
PTT-HD WNL. no rate change required. New order for PTT-HD at 1930
[2022-08-18] MEDS: carvediloL 25 MG TABLET PO ×2 (14:06→22:07)
--- NOTE | 2022-08-18 14:23 | PC.NURSE ---
pt's at bedside. Stated no pain, her interpreted for her.
[2022-08-18 14:50] LABS: Troponin-I High Sensitivity 35.3 ng/L (<3.5-17.0)
[2022-08-18 15:08] LABS: Cholesterol 139 mg/dL; HDL Cholesterol 49 mg/dL; LDL Cholesterol Calculated 66 mg/dl; Triglycerides 122 mg/dL
--- NOTE | 2022-08-18 16:29 | PC.NURSE ---
pt sitting on the edge of bed. A&O. Reports no pain. Heparin drip running
[2022-08-18] MEDS: Losartan Potassium 50 MG TABLET PO (17:40)
[2022-08-18] MEDS: Insulin Lispro 100 UNIT/ML 3 ML VIAL SUBCUT ×2 (17:45→22:05)
[2022-08-18 17:54] LABS: Glucose, Whole Blood 161 mg/dL (60-115)
[2022-08-18 20:24] LABS: PTT Heparin Drip 25.5 SEC (53-77.9)
[2022-08-18 20:45] LABS: Glucose, Whole Blood 213 mg/dL (60-115)
[2022-08-18] MEDS: Insulin Glargine,Hum.rec.anlog 100 UNIT/ML 10 ML VIAL 22 UNIT SUBCUT (22:04)
[2022-08-18] MEDS: Magnesium Oxide 400 MG TABLET PO (22:06)
[2022-08-18] MEDS: Ascorbic Acid 500 MG TABLET 1000 MG PO (22:07)
[2022-08-18] MEDS: Atorvastatin Calcium 80 MG TABLET PO (22:07)
[2022-08-18] MEDS: Acetaminophen 325 MG TABLET 650 MG PO (22:09)
[2022-08-19] VITALS (7 sets, daily range): BP systolic 98–146; BP diastolic 59–75; PULSE 70–80; RESP 16–20; TEMP 35.9–37.1; O2SAT 85–99
[2022-08-19 07:21] LABS: Glucose, Whole Blood 166 mg/dL (60-115)
[2022-08-19] MEDS: Insulin Lispro 100 UNIT/ML 3 ML VIAL SUBCUT ×4 (09:06→21:39)
[2022-08-19] MEDS: 0.9 % Sodium Chloride Flush 3 ML SYRINGE IVFLUSH ×3 (09:06→21:40)
[2022-08-19] MEDS: Ascorbic Acid 500 MG TABLET 1000 MG PO ×2 (09:07→21:39)
[2022-08-19] MEDS: Furosemide 20 MG TABLET PO (09:07)
[2022-08-19] MEDS: Cholecalciferol (Vitamin D3) 25 MCG TABLET 50 MCG PO (09:07)
[2022-08-19] MEDS: Magnesium Oxide 400 MG TABLET PO ×2 (09:07→21:39)
[2022-08-19] MEDS: Multivitamin TABLET 1 TAB PO (09:07)
[2022-08-19] MEDS: carvediloL 25 MG TABLET PO ×2 (09:07→21:39)
[2022-08-19] MEDS: Losartan Potassium 50 MG TABLET PO (09:07)
[2022-08-19 11:47] LABS: Glucose, Whole Blood 196 mg/dL (60-115)
--- NOTE | 2022-08-19 13:00 | PM.CNCAR ---
History of Present Illness History of Present Illness Date of Service: 08/19/22 Requesting physician: Jairo Higgins Chief complaint: chest pain, h/o cardiomyopathy Narrative: 67-year-old Citizen [place] lady who has known history of cardiomyopathy with ejection fraction of 40% based on echocardiography from 2019 done at [facility]. She follows with Dr. Efrain Nance. it was thought that she may have some sort of infiltrative cardiomyopathy. She had ischemic evaluation before based on notes at [facility] [place] and was thought to have nonischemic cardiomyopathy. She had diffusely abnormal EKG and the last EKG that I could see from [facility] [place] had diffuse T-wave inversions in anterolateral leads. She is now presenting with chest discomfort and ST depressions in the precordial leads. Sensation in the chest. She describes this as a burning sensation in the chest. These symptoms were ongoing and her biomarkers were high sensitivity troponin of 22, 28 and 35. There has not been any change in her EKG and these depressions are present on multiple ECGs. At the time of interview she is completely symptom free. Her blood pressure was elevated and we added losartan. It appears she was started on Entresto but she could not afford it. She is denying any other symptoms. She is on supplemental oxygen currently. [facility] Past Medical History Medical History (Updated 08/19/22 @ 13:36 by Trino Islas MD) CHF (congestive heart failure) COPD (chronic obstructive pulmonary disease) HTN (hypertension) Hyperlipidemia Type 2 diabetes Family History Family History (Updated 08/18/22 @ 11:56 by JANELLE Peraza) Mother Stroke Maternal Grandmother CAD (coronary artery disease) Social History Social History (Updated 08/18/22 @ 11:56 by JANELLE Peraza) Household Members: Spouse Housing: House Do you presently have visiting nurse or other home services: No Patient Tobacco Use Status: Former Tobacco user Second Hand Smoke Exposure: No Meds Allergies Allergy/AdvReac Type Severity Reaction Status Date / Time No Known Allergies Allergy Unverified 07/14/20 17:47 [No Known Allergies*] Active Medications: Current Medications Acetaminophen (Acetaminophen 325 Mg Tablet) 650 mg PO Q6H PRN PRN Reason: Pain, Mild (Pain Scale 1-3) Last Admin: 08/18/22 22:09 Dose: 650 mg Ascorbic Acid (Ascorbic Acid 500 Mg Tablet) 1,000 mg PO BID [facility] Last Admin: 08/19/22 09:07 Dose: 1,000 mg Atorvastatin Calcium (Atorvastatin Calcium 80 Mg Tablet) 80 mg PO BEDTIME [facility] Last Admin: 08/18/22 22:07 Dose: 80 mg Carvedilol (Carvedilol 25 Mg Tablet) 25 mg PO BID [facility]; Protocol Last Admin: 08/19/22 09:07 Dose: 25 mg Dextrose (Dextrose 50 % 25 Gm/50 Ml Syringe) 25 gm IVPUSH Q15M PRN; Protocol PRN Reason: per Hypoglycemia Standing Ord. Docusate Sodium (Docusate Sodium 100 Mg Capsule) 100 mg PO DAILY PRN PRN Reason: Constipation Furosemide (Furosemide 20 Mg Tablet) 20 mg PO DAILY [facility]; Protocol Last Admin: 08/19/22 09:07 Dose: 20 mg Glucose (Glucose Gel 15 Gm Gel..Gram.) 15 gm PO Q15M PRN; Protocol PRN Reason: per Hypoglycemia Standing Ord. Insulin Glargine (Insulin Glargine,Hum.Rec.Anlog 100 Unit/Ml 10 Ml Vial) 22 unit SUBCUT BEDTIME [facility] Last Admin: 08/18/22 22:04 Dose: 22 unit Insulin Human Lispro (Insulin Lispro 100 Unit/Ml 3 Ml Vial) 0 unit SUBCUT QIDACHS [facility]; Protocol Last Admin: 08/19/22 12:05 Dose: 2 unit Losartan Potassium (Losartan Potassium 50 Mg Tablet) 50 mg PO DAILY [facility]; Protocol Last Admin: 08/19/22 09:07 Dose: 50 mg Magnesium Oxide (Magnesium Oxide 400 Mg Tablet) 400 mg PO BID [facility] Last Admin: 08/19/22 09:07 Dose: 400 mg Multivitamins/Vitamin C (Multivitamin Tablet) 1 tab PO DAILY [facility] Last Admin: 08/19/22 09:07 Dose: 1 tab Nitroglycerin (Nitroglycerin 0.4 Mg Tab.Subl) 0.4 mg SUBLINGUAL Q5MX3 PRN PRN Reason: Chest Pain Nitroglycerin (Nitroglycerin 0.4 Mg Tab.Subl) 0.4 mg SUBLINGUAL Q5MX3 PRN PRN Reason: Angina Ondansetron HCl (Ondansetron Hcl 4 Mg/2 Ml Vial) 4 mg IVPUSH Q8H PRN PRN Reason: Nausea and Vomiting Pharmacy Consult (Consult Rx Perform Med Rec) 1 each MISCELLANE ONCE PRN PRN Reason: Consult order Salmeterol Xinafoate (Salmeterol Xinafoate 50 Mcg Blst.W.Dev) 1 puff INHALE BID [facility] Last Admin: 08/19/22 07:38 Dose: Not Given Sodium Chloride (0.9 % Sodium Chloride Flush 3 Ml Syringe) 3 ml IVFLUSH QSHIFT [facility] Last Admin: 08/19/22 12:06 Dose: 3 ml Vitamin D (Cholecalciferol (Vitamin D3) 25 Mcg Tablet) 50 mcg PO DAILY [facility] Last Admin: 08/19/22 09:07 Dose: 50 mcg Home Medications Medication Instructions Recorded Confirmed Last Taken Type albuterol sulfate 90 mcg/actuation 2 puff inhalation Q4H PRN 08/18/22 08/18/22 Unknown History aerosol inhaler (ProAir HFA) Shortness Of Breath ascorbic acid (vitamin C) 1,000 mg 1,000 mg PO BID 08/18/22 08/18/22 08/17/22 History tablet (Vitamin C) aspirin 81 mg tablet,delayed 81 mg PO DAILY 08/18/22 08/18/22 08/17/22 History release atorvastatin 80 mg tablet 1 tab BEDTIME 08/18/22 08/18/22 08/17/22 History carvedilol 25 mg tablet 1 tab PO BID 08/18/22 08/18/22 08/17/22 History cholecalciferol (vitamin D3) 50 1 cap DAILY 08/18/22 08/18/22 08/17/22 History mcg (2,000 unit) capsule cyanocobalamin (vitamin B-12) 1,000 mcg PO DAILY 08/18/22 08/18/22 Unknown History 1,000 mcg tablet furosemide 20 mg tablet 1 tab PO DAILY 08/18/22 08/18/22 08/17/22 History insulin glargine 100 unit/mL (3 30 unit subcut BEDTIME 08/18/22 08/18/22 08/17/22 History mL) subcutaneous pen (Lantus Solostar U-100 Insulin) ipratropium 0.5 mg-albuterol 3 mg 3 ml inhalation Q6H PRN Shortness 08/18/22 08/18/22 Unknown History (2.5 mg base)/3 mL nebulization Of Breath soln magnesium oxide 400 mg PO BID 08/18/22 08/18/22 08/17/22 History metformin 1,000 mg tablet 1 tab PO BIDWM 08/18/22 08/18/22 08/17/22 History salmeterol 50 mcg/dose blister 1 inh inhalation BID 08/18/22 08/18/22 08/17/22 History powder for inhalation (Serevent Diskus) vitamin B complex 1 tab PO DAILY 08/18/22 08/18/22 08/17/22 History vitamin K2 100 mcg capsule 100 mcg PO DAILY 08/18/22 08/18/22 08/17/22 History Physical Exam Vital Signs: Vital Signs: Last Vital Signs Temp 97.3 F 08/19/22 11:24 Pulse 73 08/19/22 11:24 Resp 18 08/19/22 11:24 BP 131/75 08/19/22 11:24 Pulse Ox 98 08/19/22 11:24 O2 Del Method 08/19/22 11:24 O2 Flow Rate 2 08/19/22 11:24 BMI result Body Mass Index 33.0 GENERAL APPEARANCE: in no acute distress, pleasant. NECK: no carotid bruit, Mild jugular venous distention. SKIN: no suspicious lesions, warm and dry. HEART: no murmurs, regular rate and rhythm. LUNGS: crackles both bases. ABDOMEN: soft, nontender. EXTREMITIES: mild edema. PERIPHERAL PULSES: equal. NEUROLOGIC: No gross deficits, AAO X 3 Objective Labs and Meds Result diagrams: 08/18/22 04:35 08/18/22 02:35 Lab results: Laboratory Results - last 24 hr 08/18/22 08/18/22 08/18/22 02:35 02:35 13:21 aPTT Heparin Protocol POC Glucose 111 Troponin I High Sens Triglycerides 122 Cholesterol 139 LDL Cholesterol Direct Cancelled LDL Cholesterol, Calc 66 HDL Cholesterol 49 08/18/22 08/18/22 08/18/22 13:59 17:39 19:54 aPTT Heparin Protocol 25.5 L D POC Glucose 161 H Troponin I High Sens 35.3 H Triglycerides Cholesterol LDL Cholesterol Direct LDL Cholesterol, Calc HDL Cholesterol 08/18/22 08/19/22 08/19/22 20:41 07:15 11:26 aPTT Heparin Protocol POC Glucose 213 H 166 H 196 H Troponin I High Sens Triglycerides Cholesterol LDL Cholesterol Direct LDL Cholesterol, Calc HDL Cholesterol Assessment and Plan (1) Chest pain: Status: Acute (2) ST segment depression: Status: Acute (3) Cardiomyopathy: Status: Acute (4) CHF (congestive heart failure): Status: Acute Plan 67-year-old female who is presenting for burning chest discomfort. High sensitivity troponin levels were low and flat. Her EKG showed diffuse ST depressions. She is not anemic or hypoxic. It appears she has background of ?infiltrative cardiomyopathy although not aware whether she had cardiac MRI done in the past. She follows with heart failure service at [facility] [place] and sees Dr. Nance. she has diffuse ST depression the EKG and is currently pain free. She was deemed nonischemic in the past based on chart review at [facility] [place]. Blood pressure was elevated and losartan has been added. She could not afford Entresto. Check echocardiogram tomorrow to assess for any worsening myopathy. Clinically she is volume overloaded and has JVD and lung crackles. recommend starting her or IV diuretics. agree with checking echocardiogram Tomorrow. Thank you for allowing me to participate in the care of your patient. Please feel free to contact me if you have any questions. Procedures Date of Service Date of Service: 08/19/22
--- NOTE | 2022-08-19 14:02 | HO.PM.IMPN ---
Subjective Subjective Date of Service: 08/19/22 Interval History: No significant nursing events overnight. Patient on 2 L oxygen this morning. Without any complaints this morning. No complaints of chest discomfort Review of Systems All 13 review of systems are negative except as noted in HPI Physical Exam Vital Signs: Vital Signs: Last Vital Signs Temp 97.3 F 08/19/22 11:24 Pulse 73 08/19/22 11:24 Resp 18 08/19/22 11:24 BP 131/75 08/19/22 11:24 Pulse Ox 98 08/19/22 11:24 O2 Del Method 08/19/22 11:24 O2 Flow Rate 2 08/19/22 11:24 BMI result Body Mass Index 33.0 Middle-aged female lying in bed in no distress on 2 L supplemental oxygen Mild JVD Regular rate and rhythm, S1-S2 heard Crackles at bases Abdomen soft nontender, no guarding, no rigidity Patient is awake, alert and oriented to self, place, time and person ; no focal motor deficit Psych: Normal mood Mild pedal edema Objective Data Active Medications Acetaminophen (Acetaminophen 325 Mg Tablet) 650 mg PO Q6H PRN PRN Reason: Pain, Mild (Pain Scale 1-3) Last Admin: 08/18/22 22:09 Dose: 650 mg Documented By: ANNIKA Ascorbic Acid (Ascorbic Acid 500 Mg Tablet) 1,000 mg PO BID [facility] Last Admin: 08/19/22 09:07 Dose: 1,000 mg Documented By: JERMAINE Atorvastatin Calcium (Atorvastatin Calcium 80 Mg Tablet) 80 mg PO BEDTIME [facility] Last Admin: 08/18/22 22:07 Dose: 80 mg Documented By: ANNIKA Carvedilol (Carvedilol 25 Mg Tablet) 25 mg PO BID [facility]; Protocol Last Admin: 08/19/22 09:07 Dose: 25 mg Documented By: JERMAINE Dextrose (Dextrose 50 % 25 Gm/50 Ml Syringe) 25 gm IVPUSH Q15M PRN; Protocol PRN Reason: per Hypoglycemia Standing Ord. Docusate Sodium (Docusate Sodium 100 Mg Capsule) 100 mg PO DAILY PRN PRN Reason: Constipation Glucose (Glucose Gel 15 Gm Gel..Gram.) 15 gm PO Q15M PRN; Protocol PRN Reason: per Hypoglycemia Standing Ord. Insulin Glargine (Insulin Glargine,Hum.Rec.Anlog 100 Unit/Ml 10 Ml Vial) 22 unit SUBCUT BEDTIME [facility] Last Admin: 08/18/22 22:04 Dose: 22 unit Documented By: ANNIKA Insulin Human Lispro (Insulin Lispro 100 Unit/Ml 3 Ml Vial) 0 unit SUBCUT QIDACHS [facility]; Protocol Last Admin: 08/19/22 12:05 Dose: 2 unit Documented By: JERMAINE Losartan Potassium (Losartan Potassium 50 Mg Tablet) 50 mg PO DAILY [facility]; Protocol Last Admin: 08/19/22 09:07 Dose: 50 mg Documented By: JERMAINE Magnesium Oxide (Magnesium Oxide 400 Mg Tablet) 400 mg PO BID [facility] Last Admin: 08/19/22 09:07 Dose: 400 mg Documented By: JERMAINE Multivitamins/Vitamin C (Multivitamin Tablet) 1 tab PO DAILY [facility] Last Admin: 08/19/22 09:07 Dose: 1 tab Documented By: JERMAINE Nitroglycerin (Nitroglycerin 0.4 Mg Tab.Subl) 0.4 mg SUBLINGUAL Q5MX3 PRN PRN Reason: Chest Pain Nitroglycerin (Nitroglycerin 0.4 Mg Tab.Subl) 0.4 mg SUBLINGUAL Q5MX3 PRN PRN Reason: Angina Ondansetron HCl (Ondansetron Hcl 4 Mg/2 Ml Vial) 4 mg IVPUSH Q8H PRN PRN Reason: Nausea and Vomiting Pharmacy Consult (Consult Rx Perform Med Rec) 1 each MISCELLANE ONCE PRN PRN Reason: Consult order Salmeterol Xinafoate (Salmeterol Xinafoate 50 Mcg Blst.W.Dev) 1 puff INHALE BID [facility] Last Admin: 08/19/22 07:38 Dose: Not Given Documented By: MARJORIE Non-Admin Reason: Med Not Available Sodium Chloride (0.9 % Sodium Chloride Flush 3 Ml Syringe) 3 ml IVFLUSH QSHIFT [facility] Last Admin: 08/19/22 12:06 Dose: 3 ml Documented By: JERMAINE Vitamin D (Cholecalciferol (Vitamin D3) 25 Mcg Tablet) 50 mcg PO DAILY [facility] Last Admin: 08/19/22 09:07 Dose: 50 mcg Documented By: JERMAINE Labs CBC & Chem 7: 08/18/22 04:35 08/18/22 02:35 Labs: Laboratory Results - last 24 hr 08/18/22 08/18/22 08/18/22 02:35 02:35 13:59 aPTT Heparin Protocol POC Glucose Troponin I High Sens 35.3 H Triglycerides 122 Cholesterol 139 LDL Cholesterol Direct Cancelled LDL Cholesterol, Calc 66 HDL Cholesterol 49 08/18/22 08/18/22 08/18/22 17:39 19:54 20:41 aPTT Heparin Protocol 25.5 L D POC Glucose 161 H 213 H Troponin I High Sens Triglycerides Cholesterol LDL Cholesterol Direct LDL Cholesterol, Calc HDL Cholesterol 08/19/22 08/19/22 07:15 11:26 aPTT Heparin Protocol POC Glucose 166 H 196 H Troponin I High Sens Triglycerides Cholesterol LDL Cholesterol Direct LDL Cholesterol, Calc HDL Cholesterol Assessment and Plan (1) CHF (congestive heart failure): Status: Acute (2) Cardiomyopathy: Status: Acute (3) Type 2 diabetes: Status: Acute (4) HTN (hypertension): Status: Acute Plan 67-year-old female with history of insulin-dependent type 2 diabetes, hypertension, CHF unspecified type, COPD, former smoker, hypercholesterolemia, history unspecified arrhythmia admitted for evaluation of chest discomfort. # acute hypoxemic respiratory failure secondary to # acute on chronic congestive heart failure with reduced ejection fraction -does have a nonischemic cardiomyopathy with ejection fraction 40% from Heart failure Service at [facility]. ?infiltrative cardiomyopathy. Cardiology consulted, appreciate recommendations. Echocardiogram pending tomorrow -initiating IV diuretics, transition to p.o. once you volume as a chief. Patient could not afford Entresto, is on losartan. Also on beta-alan -maintain oxygen saturation greater than 90%, wean as tolerated # atypical chest discomfort -burning in character. Less likely ACS. Cardiology on board. # essential hypertension -on losartan, beta alan and Lasix #HLD -COntinue statin # insulin-dependent type 2 diabetes with hyperglycemia -POC glucose -diabetic diet -dose adjusted Lantus -Humalog on sliding scale -hold metformin # COPD without acute exacerbation -continue home maintenance meds -albuterol p.r.n. # history unspecified arrhythmia -EKG showing sinus rhythm -admit to telemetry DVT prophylaxis-on lovenox Full code Quality Stroke Does the patient have a stroke diagnosis?: No VTE Prior VTE?: No VTE Risk Level:: Medical - moderate - high VTE Device Contraindication: Treatment Not Indicated VTE Drug Contraindication: N/A - Med Ordered
--- NOTE | 2022-08-19 15:05 | MHC.CM.PN ---
IMM 08/19 22 Female 67 DX Chest pain. She lives with her . He speaks [place]. She is independent all functional mobility. DP home self care will transport.
[2022-08-19] MEDS: Furosemide 40 MG/4 ML VIAL IVPUSH (15:12)
[2022-08-19] MEDS: Enoxaparin Sodium 40 MG/0.4 ML SYRINGE SUBCUT (15:12)
[2022-08-19 16:58] LABS: Glucose, Whole Blood 240 mg/dL (60-115)
[2022-08-19] MEDS: Insulin Glargine,Hum.rec.anlog 100 UNIT/ML 10 ML VIAL 22 UNIT SUBCUT (21:39)
[2022-08-19] MEDS: Atorvastatin Calcium 80 MG TABLET PO (21:39)
[2022-08-20 00:57] VITALS: BP 116/68
[2022-08-20 03:45] VITALS: BP 111/56; PULSE 73; RESP 15; TEMP 36.3; O2SAT 97
[2022-08-20] MEDS: Acetaminophen 325 MG TABLET 650 MG PO (03:59)
--- NOTE | 2022-08-20 07:00 | CA_ITS ---
Transthoracic Echocardiogram Patient (Last, First, Middle): Kayli Wills, Gender: Female Date of : 1955 Age: 67 Procedure Date: 08/20/2022 Procedure Type: Transthoracic Echocardiogram Location: [facility] [place] Height: 157.48 cm Weight: 77.11 kg BSA: 1.78 m2 Heart Rate: 70 bpm BP: 111 / 56 mmHg Natural Resources Technician: SB Referring MD: Mickie LUIS Medical Assistant Float: Aj Cesar MD Symptoms: chest pain, ekg changes Study Quality: Adequate ECG Rhythm: Sinus Conclusions: - 1. Mildly dilated left ventricle with severe LV systolic dysfunction with LVEF of 25-30% with grade 2 diastolic dysfunction 2. Probable mild aortic stenosis 3. Normal right atrial pressures 4. No gross pericardial effusion Findings Left Ventricle Mildly increased left ventricular cavity size. There is normal left ventricular wall thickness. The left ventricular systolic function is severely decreased. The visually estimated ejection fraction is between 25 30%. Spectral Doppler is indicative of a pseudonormal filling pattern. E/E prime ratio is >15, consistent with elevated filling pressures. Evidence suggests grade II (moderate) diastolic dysfunction. Right Ventricle Normal right ventricular cavity size. There is low normal right ventricular systolic function. Atria The left atrium is normal in size. Interatrial shunt cannot be excluded. The right atrium is normal in size. Aortic Valve The aortic valve was not well visualized. There is mild calcification of the aortic valve. There is mild aortic valve stenosis. There is no aortic valve regurgitation. Mitral Valve There is mild anterior and posterior mitral leaflet thickening. There is trace mitral valve regurgitation. There is no mitral valve stenosis. Pulmonic Valve The pulmonic valve was not well visualized. Tricuspid Valve Likely normal tricuspid valve structure and function. Tricuspid regurgitation envelope is inadequate for calculation of right ventricular systolic pressure. Normal right atrial pressure. Great Vessels All visible segments of the aorta are normal in size. The pulmonary artery was not well visualized. Venous The inferior vena cava is normal in size and collapses greater than 50% with inspiration. Pericardium/Pleural There is no evidence of pericardial effusion. Prior Study Comparison No previous study in the last 5 years for comparison Measurements 2D Linear Measurements IVSd: 0.98 0.6-0.9/0.6-1.0 cm LVIDd: 6.04 3.9-5.3/4.2-5.9 cm LVIDd Index: 3.39 2.4-3.2/2.2-3.1 cm/m2 LVIDs: 5.19 2.0-3.6 cm LVPWd: 0.92 0.7-1.1 cm LA Diam: 4.00 2.7-3.8/3.0-4.0 cm LAIDs Index: 2.25 1.5-2.3 cm/m2 LV Mass: 290.84 67-162/88-224 g LV Mass Index: 163.39 43-95/49-115 g/m2 LVOT Diam: 2.20 3.0+(-)1.3 cm 2D Systolic Function EF 4C: 33.10 >55% EF 2C: 23.80 >55% EF BiP: 28.00 >55% Mitral Valve MV Pk E: 1.14 MV PK A: 1.04 MV Decel Time: 179.00 E/A: 1.10 E'Lateral: 5.70 E'Medial: 4.26 E/E' Med: 26.80 E/E' Lat: 20.00 PHT: 52.00 MVA PHT: 4.23 Decel [place]: 6.35 Aortic Valve AoV Pk Joni: 1.39 AoV Mn Joni: 0.99 AoV VTI: 0.33 AoV Pk Grad: 8.00 Aov Mn Grad: 4.00 MALACHI Cont.VTI: 3.09 LVOT LVOT Pk Joni: 1.19 LVOT Mn Joni: 0.88 LVOT VTI: 0.27 LVOT Pk Grad: 6.00 LVOT Mn Grad: 3.00 LVOT Diam: 2.20 LVOT Area: 3.80 Diastolic Function MV Pk E: 1.14 MV Pk A: 1.04 E/A: 1.10 E'Medial: 4.26 E/E' Med: 26.80 E' Laterial: 5.70 E/E' Lat: 20.00 Right Ventricle TAPSE (mm): 16.50 TVS' Joni: 7.38 Tricuspid Valve RA Press: 3.00 Great Vessels Aorta Sinus of Valsalva: 2.70 2.0-3.5 cm Pulmonary Veins Pulm Vein S/D 0.80 Pulmonary Valve PV Pk Joni: 0.81 Peak PV Grad: 3.00 Updated in Other Vendor System with Status of Final Aj Cesar MD electronically signed on 08/20/2022 11:49:27 AM with status of Final
[2022-08-20 07:07] LABS: MANUAL DIFF FLAG NO
[2022-08-20 07:28] LABS: Basophils Percent Auto 0.5 % (0-2); Eosinophils Absolute Auto 0.2 X10*3/uL (0.0-0.4); Hematocrit 37.1 % (37.0-47.0); Imm Gran Abs Auto 0.03 X10*3/uL (0.00-0.03); Imm Gran Pct Auto 0.4 % (0.0-0.4); Lymphocytes Absolute Auto 2.4 X10*3/uL (1.2-4.9); Lymphocytes Percent Auto 30.7 % (20-40); Mean Corpuscular HGB Conc 32.3 g/dl (31.0-35.0); Mean Corpuscular Hemoglobin 28.4 pg (27.0-33.0); Mean Corpuscular Volume 87.7 fL (80.0-98.0); Mean Platelet Volume 10.6 fL (9.4-12.3); Monocytes Absolute Auto 0.5 X10*3/uL (0.1-1.2); Neutrophils Absolute Auto 4.6 x10*3/uL (2.0-8.3); Neutrophils Percent Auto 59.4 % (45-73); Platelet Count 320 X10*3/uL (160-400); Red Blood Count 4.23 X10*6/uL (4.20-5.50); Red Cell Distribution Width 12.9 % (11.0-16.0); White Blood Count 7.7 X10*3/uL (4.8-10.8)
[2022-08-20 07:49] LABS: Anion Gap 17 (12-20); Blood Urea Nitrogen 25 mg/dL (9-16); Calcium 9.9 mg/dL (8.4-10.2); Carbon Dioxide 29 mmol/L (22-29); Chloride 96 mmol/L (96-108); Creatinine Clr Calc Pharmacy 73.2; Estimated Glomerular Filt Rate > 60; Glucose Random 171 mg/dL (60-115); Potassium 4.7 mmol/L (3.3-5.1); Sodium 137 mmol/L (135-145)
[2022-08-20 08:00] VITALS: BP 132/60; PULSE 78; RESP 16; TEMP 36.5; O2SAT 98
[2022-08-20 08:10] LABS: Glucose, Whole Blood 154 mg/dL (60-115)
[2022-08-20] MEDS: Furosemide 40 MG/4 ML VIAL IVPUSH (09:09)
[2022-08-20] MEDS: Aspirin Enteric Coated 81 MG TABLET.DR PO (09:10)
[2022-08-20] MEDS: Insulin Lispro 100 UNIT/ML 3 ML VIAL SUBCUT ×2 (09:10→11:52)
[2022-08-20] MEDS: Cyanocobalamin (Vitamin B-12) 1,000 MCG TABLET 1000 MCG PO (09:10)
[2022-08-20] MEDS: carvediloL 25 MG TABLET PO (09:11)
[2022-08-20] MEDS: Magnesium Oxide 400 MG TABLET PO (09:11)
[2022-08-20] MEDS: 0.9 % Sodium Chloride Flush 3 ML SYRINGE IVFLUSH (09:12)
[2022-08-20] MEDS: Multivitamin TABLET 1 TAB PO (09:12)
[2022-08-20] MEDS: Losartan Potassium 50 MG TABLET PO (09:12)
[2022-08-20] MEDS: Ascorbic Acid 500 MG TABLET 1000 MG PO (09:12)
[2022-08-20] MEDS: Cholecalciferol (Vitamin D3) 25 MCG TABLET 50 MCG PO (09:15)
--- NOTE | 2022-08-20 10:47 | P.DS_ITS ---
DS: Providers Provider Date of Service: 08/20/22 Date of admission: 08/18/22 11:01 Primary care physician: Dante Myers MD Consults: 08/18/22 11:01 Consult to Cardiology Routine Consulting Provider: Trino Islas Reason for consultation: chest pain, ekg changes DS: Diagnosis Discharge Diagnosis (1) CHF (congestive heart failure): Status: Acute (2) Cardiomyopathy: Status: Acute (3) Type 2 diabetes: Status: Acute (4) HTN (hypertension): Status: Acute DS: Summary Hospital Course Hospital Course: 67-year-old female with history of insulin-dependent type 2 diabetes, hypertension, CHF unspecified type, COPD, former smoker, hypercholesterolemia, history unspecified arrhythmia presented to the ED early this morning for evaluation of retrosternal chest pain that has been ongoing intermittently for several days that had been worsening.? She describes a burning sensation in the chest without any pressure with associated tingling into the left forearm and hand.? There is no radiation of the pain.? Occurs at rest and with exertion.? She denies any other associated symptoms including diaphoresis, nausea, vomiting, shortness of breath, lightheadedness, palpitations.? She states she did have a similar episode well walking for prolonged period several months ago described as tightness across the chest which resolved with rest.? She did not seek medical attention for follow-up on this chest pain.? On arrival, patient is hypertensive at 175/84, heart rate 92, no hypoxia.? Chest x-ray shows diffuse bronchial wall thickening suggestive of bronchitis without any focal consolidation.? Initial EKG shows sinus rhythm, rate 91, with ST/T-wave abnormality with depressions noted in the the 2-4 and leads II, III, AVF.? Repeat EKG shows some improvement with depressions persist.? Initial troponin 22.7, repeat troponin 28.0.? Glucose 171.? Renal function and electrolytes stable.? Hematology study stable.? Patient given aspirin and nitro in the ED and is resting comfortably currently.? She has no complaints.? ED discussed case with cardiology who is recommending admission and patient started on heparin drip. RN assisted with Lithuanian interpretation. Hospital course: Patient was observed in the hospital her troponin were indeterminate and did not meet ACLS criteria, she remains chest pain free. [facility] will do further testing on outpatient bais Time Spent with Patient Time attestation: Total time spent providing and/or coordinating discharge services: Discharge coordination time: Greater than 30 minutes Quality: Safe Use of Opioids Does Pt have an Active Cancer Diagnosis on the Problem List?: No Quality: Stroke Does the patient have a stroke diagnosis?: No Physical Exam Vital Signs: Vital Signs: Last Vital Signs Temp 97.7 F 08/20/22 08:00 Pulse 78 08/20/22 08:00 Resp 16 08/20/22 08:00 BP 132/60 08/20/22 08:00 Pulse Ox 98 08/20/22 08:00 O2 Del Method 08/20/22 08:00 O2 Flow Rate 2 08/20/22 08:00 FiO2 97 08/19/22 19:34 BMI result Body Mass Index 33.0 DS: Data Data Completed and Pending Labs on day of discharge: Laboratory Results - last 24 hr 08/19/22 08/19/22 08/20/22 11:26 16:46 06:26 WBC 7.7 RBC 4.23 Hgb 12.0 Hct 37.1 MCV 87.7 MCH 28.4 MCHC 32.3 RDW 12.9 Plt Count 320 MPV 10.6 Immature Gran % (Auto) 0.4 Neut % (Auto) 59.4 Lymph % (Auto) 30.7 [place] % (Auto) 7.0 Eos % (Auto) 2.0 Baso % (Auto) 0.5 Lymph # (Auto) 2.4 [place] # (Auto) 0.5 Eos # (Auto) 0.2 Baso # (Auto) 0.0 Abs Immat Gran (auto) 0.03 Absolute Neuts (auto) 4.6 Absolute Nucleated RBC 0.000 Nucleated RBC % (auto) 0.0 Sodium Potassium Chloride Carbon Dioxide Anion Gap BUN Creatinine Estim Creat Clear Calc Estimated GFR POC Glucose 196 H 240 H Random Glucose Calcium 08/20/22 08/20/22 06:26 08:05 WBC RBC Hgb Hct MCV MCH MCHC RDW Plt Count MPV Immature Gran % (Auto) Neut % (Auto) Lymph % (Auto) [place] % (Auto) Eos % (Auto) Baso % (Auto) Lymph # (Auto) [place] # (Auto) Eos # (Auto) Baso # (Auto) Abs Immat Gran (auto) Absolute Neuts (auto) Absolute Nucleated RBC Nucleated RBC % (auto) Sodium 137 Potassium 4.7 Chloride 96 Carbon Dioxide 29 Anion Gap 17 BUN 25 H Creatinine 0.76 Estim Creat Clear Calc 73.2 Estimated GFR > 60 POC Glucose 154 H Random Glucose 171 H Calcium 9.9 D Discharge Plan Discharge Anticipated Discharge Date/Time: 08/20/22 10:43 Patient Disposition: Home, Self-Care Discharge Diagnosis: Chest pain Referrals: Dante Myers MD [Primary Care Provider] - 1 Week Discharge Medications: Continued atorvastatin 80 mg tablet 1 tab BEDTIME carvedilol 25 mg tablet 1 tab PO BID aspirin 81 mg Tablet,Delayed Release (Dr/Ec) 81 mg PO DAILY metformin 1,000 mg tablet 1 tab PO BIDWM furosemide 20 mg tablet 1 tab PO DAILY insulin glargine [Lantus Solostar U-100 Insulin] 100 unit/mL (3 mL) insulin pen 30 unit subcut BEDTIME cholecalciferol (vitamin D3) 50 mcg (2,000 unit) capsule 1 cap DAILY ascorbic acid (vitamin C) [Vitamin C] 1,000 mg Tablet 1,000 mg PO BID ipratropium-albuterol 0.5 mg-3 mg(2.5 mg base)/3 mL Solution For Nebulization 3 ml INHALATION Q6H PRN (Reason: Shortness Of Breath) Serevent Diskus 50 mcg/dose Blister With Device 1 inh INHALATION BID vitamin B complex Tablet 1 tab PO DAILY albuterol sulfate [ProAir HFA] 90 mcg/actuation Hfa Aerosol Inhaler 2 puff INHALATION Q4H PRN (Reason: Shortness Of Breath) magnesium oxide 400 mg magnesium Tablet 400 mg PO BID vitamin K2 100 mcg Capsule 100 mcg PO DAILY cyanocobalamin (vitamin B-12) 1,000 mcg Tablet 1,000 mcg PO DAILY Discharge Orders: Discharge Order (Routine); Ordered 08/20/22 Ordered By: Ld Campos Diet: Advance to usual diet Activity on Discharge: As tolerated Stand Alone Forms: Patient Portal Discharge page Care Plan Goals: full cardiac work up Health Concerns: chest pain Plan of Treatment: follow up with Dr. Cesar for more testing Assessment: As above Patient Instructions: Heart Failure (DC), Low-Sodium Diet (DC) Discharge Date/Time: 08/20/22 15:00
[2022-08-20 11:00] VITALS: BP 115/58; PULSE 69; RESP 18; TEMP 36.6; O2SAT 96
--- NOTE | 2022-08-20 11:07 | MHC.CM.PN ---
Patient has been medically cleared for dc to home today, self care. Last Imm addressed on 08/19/2022.
[2022-08-20 11:21] LABS: Glucose, Whole Blood 339 mg/dL (60-115)
--- NOTE | 2022-08-20 11:46 | P.PNCA_ITS ---
Subjective Subjective Date of Service: 08/20/22 Principal diagnosis: Cardiomyopathy, chest pain Interval history: Patient presented with chest pain with diffuse EKG changes. Echocardiogram done today shows further reduction LVEF of 25-30%. No overt symptoms of congestive heart failure at this point in time. Noted short episode of fast heart rate which was consistent with possibly AFib. Review of Systems Review of Systems Yes all other systems are reviewed and are negative Physical Exam Vital Signs: Last Vital Signs Temp 97.8 F 08/20/22 11:00 Pulse 69 08/20/22 11:00 Resp 18 08/20/22 11:00 BP 115/58 L 08/20/22 11:00 Pulse Ox 96 08/20/22 11:00 O2 Del Method 08/20/22 11:00 O2 Flow Rate 1.5 08/20/22 11:00 FiO2 97 08/19/22 19:34 BMI result Body Mass Index 33.0 Const General: cooperative, comfortable, no acute distress, alert and awake Nutritional Appearance: overweight Orientation/consciousness: patient oriented x3 Limitations: no limitations Neck Neck: Yes trachea midline, Yes supple and Yes no JVD Chest Chest palpation & inspection: normal inspection of the chest Resp Effort & Inspection: normal respiratory effort Auscultation: clear to auscultation bilaterally Cardio Jugular venous distension: no JVD Palpation: normal PMI Rate: regular rate Rhythm: regular rhythm Heart sounds: S1 normal heart sound present, S2 normal heart sound present, no click, no gallops and Murmur heart sound present systolic early Skin General skin exam: no rashes or lesions noted Neuro General: patient oriented x3 and no focal motor deficits Extrem General: Yes no clubbing, cyanosis or edema Objective Labs and Meds Result diagrams: 08/20/22 06:26 08/20/22 06:26 Lab results: Laboratory Results - last 24 hr 08/19/22 08/19/22 08/20/22 11:26 16:46 06:26 WBC 7.7 RBC 4.23 Hgb 12.0 Hct 37.1 MCV 87.7 MCH 28.4 MCHC 32.3 RDW 12.9 Plt Count 320 MPV 10.6 Immature Gran % (Auto) 0.4 Neut % (Auto) 59.4 Lymph % (Auto) 30.7 [place] % (Auto) 7.0 Eos % (Auto) 2.0 Baso % (Auto) 0.5 Lymph # (Auto) 2.4 [place] # (Auto) 0.5 Eos # (Auto) 0.2 Baso # (Auto) 0.0 Abs Immat Gran (auto) 0.03 Absolute Neuts (auto) 4.6 Absolute Nucleated RBC 0.000 Nucleated RBC % (auto) 0.0 Sodium Potassium Chloride Carbon Dioxide Anion Gap BUN Creatinine Estim Creat Clear Calc Estimated GFR POC Glucose 196 H 240 H Random Glucose Calcium 08/20/22 08/20/22 08/20/22 06:26 08:05 11:03 WBC RBC Hgb Hct MCV MCH MCHC RDW Plt Count MPV Immature Gran % (Auto) Neut % (Auto) Lymph % (Auto) [place] % (Auto) Eos % (Auto) Baso % (Auto) Lymph # (Auto) [place] # (Auto) Eos # (Auto) Baso # (Auto) Abs Immat Gran (auto) Absolute Neuts (auto) Absolute Nucleated RBC Nucleated RBC % (auto) Sodium 137 Potassium 4.7 Chloride 96 Carbon Dioxide 29 Anion Gap 17 BUN 25 H Creatinine 0.76 Estim Creat Clear Calc 73.2 Estimated GFR > 60 POC Glucose 154 H 339 H Random Glucose 171 H Calcium 9.9 D Progress Note: A&P Assessment and plan (1) Chest pain: Status: Acute Assessment and Plan: Patient presents with symptoms S discomfort diffuse ST changes. In the past has been labile as nonischemic cardiomyopathy. However she has multiple risk factors for coronary artery disease. If she did not have invasive cardiac catheterization in the past will suggest her to do this as an outpatient. Continue current aggressive medical therapy with aspirin as well as statins as well as diabetes control. She is currently not having any chest pain syndrome but if she develops recurrent chest pain she is advised to come to the emergency room. Her troponins are flat. However her LV systolic dysfunction is further worsened and this is of concern. (2) Cardiomyopathy: Status: Acute Assessment and Plan: Cardiomyopathy with further worsening of LV systolic function. Will require further ischemic evaluation if not performed already invasively. Currently not in heart failure. Currently on neurohormonal modulation with carvedilol as well as losartan. Continue the same. Continue current diuretic regimen. 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 Will follow up as outpatient. Thank you for allowing me to partake in the care Time Spent With Patient Time: Total time spent is greater than 50% in coordination of care (as documented) at patient's floor/unit and/or counseling patient: Progress Note: Quality Stroke Does the patient have a stroke diagnosis?: No Procedures Date of Service Date of Service: 08/20/22
== END 2022-08-20 15:00 | disposition home or self-care (01) | DRG 291 ==
LOC: HO.ED 04:36 → HO.EDOVER 11:08 → HO.IMC 18:14
PROVIDERS: Student in an Organized Health Care Education/Training Program; Admitting Provider Physician Assistant; Emergency Provider Emergency Medicine; PCP Internal Medicine; Visit Provider Internal Medicine
DX: I11.0 Hypertensive heart disease with heart failure (principal); I50.23 Acute on chronic systolic (congestive) heart failure; J96.01 Acute respiratory failure with hypoxia; I42.8 Other cardiomyopathies; E11.65 Type 2 diabetes mellitus with hyperglycemia; E78.5 Hyperlipidemia, unspecified; E11.9 Type 2 diabetes mellitus without complications; J44.9 Chronic obstructive pulmonary disease, unspecified; T46.6X6A Underdosing of antihyperlipidemic and antiarteriosclerotic drugs, initial encounter; Z91.120 Patient's intentional underdosing of medication regimen due to financial hardship; Z20.822 Contact with and (suspected) exposure to COVID-19; Z87.891 Personal history of nicotine dependence; Z79.4 Long term (current) use of insulin; Z79.82 Long term (current) use of aspirin; Z79.84 Long term (current) use of oral hypoglycemic drugs; Z79.899 Other long term (current) drug therapy
CPT/HCPCS: 36415; 71045; 80048; 80053; 80061; 82947; 83721; 84484; 85025; 85027; 85610; 85730; 87635; 93005; 93306; 97162; 99285; J1650; J1940; Q9957

== ENCOUNTER → 2022-09-10 13:33 | Outpatient (BNVA) | payer MEDICARE, SELFPAY | PROVIDERS: PCP Internal Medicine; Visit Provider Internal Medicine Cardiovascular Disease | DX: I50.20 Unspecified systolic (congestive) heart failure (principal); I42.8 Other cardiomyopathies | CPT/HCPCS: 99212 ==